=== PATIENT | male | born 1965 | race Caucasian/White ===

== ENCOUNTER 2020-03-17 18:51 | Inpatient (IN) ==
[2020-03-17] MEDS ORDERED: DILTIAZEM 25 MG/5 ML VIAL IV ONE (19:16)
--- NOTE | 2020-03-17 19:19 | Internal Med History&Physical ---
HPI History of Present Illness Patient information: Note initiated : 03/17/20 at 7:19 pm Service Date, if different from initiated Date: [] Patient: Bertrand Curtis a 54 y/o M admitted on for recheck. Chief Complaint: Abdominal pain/shortness of breath History of present illness: Mr. Curtis is a 54 year old M with a known history of heavy alcoholism with prior pancreatitis/smoking/COPD, obesity/HTN who presents to the ER with 3 days onset of worsening shortness of breath/upper abdominal pain along with nausea. Patient admits to consuming fifth of alcohol every 2-3 days. Symptoms has progressed over the last 3 days with increasing dyspnea progressing to rest along with worsening abdominal/epigastric pain radiating to back along with associated nausea and loss of appetite. Initial work-up was consistent with blood alcohol level 380. Patient was found to be in A. fib with RVR. Patient was started on diltiazem drip. Chest imaging was consistent with CHF. CT abdomen consistent with simple pancreatitis. However patient shortly thereafter left AMA only to be back within an hour. Hospital service was consulted for admission in light of A. fib RVR/acute pancreatitis. At the time of my evaluation patient is alert but anxious. He was able to answer most of the questions. He appears anxious and labored. Is currently on 5 L oxygen and demonstrate labored breathing unable to talk in full sentences. Denies any bloody stool/bloody emesis but endorses lightheadedness, dizziness, exertional dyspnea and orthopnea. Also endorses to drinking fifth alcohol this morning. He lives with his son in [place]. He denies recent exposure to Covid or experiencing upper respiratory symptoms. Denies fever, chills, rash or joint pain. Review of systems 10 point review system was performed and is negative except for ones discussed above PFSH PFSH All Active Problems (Updated 03/17/20 @ 19:26 by Frank Ford MD) Atrial flutter (Acute) Congestive heart failure (Acute) Obstructive sleep apnea (Acute) No pertinent past surgical history (Chronic) Hepatic fibrosis (Chronic 03/21/19) Chronic obstructive lung disease (Chronic) Essential hypertension (Chronic) Chronic depression (Chronic) Alcohol abuse (Chronic) Obesity (Chronic) Hypercalcemia (Chronic) Gout (Chronic) Vitamin D deficiency (Chronic) Chronic hepatitis C (Chronic) Medical History (Updated 03/17/20 @ 19:26 by Frank Ford MD) Alcohol abuse (Chronic) Chronic depression (Chronic) Chronic hepatitis C (Chronic) Chronic obstructive lung disease (Chronic) Essential hypertension (Chronic) Gout (Chronic) Hepatic fibrosis (Chronic 03/21/19) Requires liver US q 6 months for lifetime Hypercalcemia (Chronic) Obesity (Chronic) Obstructive sleep apnea (Acute) Vitamin D deficiency (Chronic) Surgical History No pertinent past surgical history (Chronic) Family History Father Alcoholism COPD (chronic obstructive pulmonary disease) Heart disease Mother Marfan's syndrome COPD (chronic obstructive pulmonary disease) Social History lives independently: Yes education level: high school occupational status: unemployed sexually active: Yes smoking status: Current every day smoker smoking status start date: 05/29/81 alcohol intake frequency: does not drink substance use type: does not use seatbelt use: always working smoke detector in home: Yes firearms in home: No MEDS/ALLERGIES Home Medications and Allergies Home Medications Medication Instructions Recorded Confirmed Type amlodipine 5 mg tablet 5 mg PO QDAY 01/06/20 03/17/20 History fluticasone propionate 110 2 puff INHALATION BID 01/06/20 02/10/20 History mcg/actuation HFA aerosol inhaler ibuprofen 800 mg tablet See Rx Instructions PO Q6H PRN 01/06/20 02/10/20 History ipratropium 0.5 mg-albuterol 3 mg 3 ml INHALATION QID PRN 01/06/20 03/17/20 History (2.5 mg base)/3 mL nebulization soln ipratropium bromide 17 1 puff INHALATION QID 01/06/20 02/10/20 History mcg/actuation HFA aerosol inhaler lisinopril 40 mg tablet 40 mg PO QDAY 01/06/20 02/10/20 History albuterol sulfate 90 mcg/actuation 2 puff INHALATION Q4H PRN #18 g 02/10/20 03/17/20 Rx aerosol inhaler budesonide-formoterol HFA 160 2 puff INHALATION BID #10.2 g 02/28/20 Rx mcg-4.5 mcg/actuation aerosol inhaler Allergies Allergy/AdvReac Type Severity Reaction Status Date / Time No Known Drug Allergies Allergy Unverified 03/17/20 11:18 EXAM Constitutional Vitals: Temp Pulse Resp BP Pulse Ox 97.7 F 135 H 19 132/92 82 L 03/17/20 18:52 03/17/20 18:52 03/17/20 18:52 03/17/20 18:52 03/17/20 18:52 Morbidly obese Labored and anxious Head normocephalic Oral cavity moist No ear nose discharge Eye movement symmetrical Neck supple no lymphadenopathy S1-S2 tachycardic irregular Diminished breath sounds/tachypnea on 5 L oxygen Pendulous, epigastric tenderness abdomen Lower extremity no cyanosis clubbing or joint swelling Skin no suspicious lesion Psych anxious but alert cooperative Neuro normal higher function A/P Narrative A/P Narrative: * A. fib with RVR-initiated control measures. Likely precipitated by alcoholism. Check echocardiogram * Acute decompensated heart failure secondary to A. fib related likely diastolic heart failure. Initiate gentle diuresis * Acute hypoxic respiratory failure on 5 liters oxygen. Start noninvasive ventilation. Secondary to decompensated heart failure * Acute pancreatitis secondary to alcoholism, bowel rest/antiemetics and analgesics * Alcoholism-high risk withdrawal symptoms. Continue multivitamin/benzodiazepine protocol * History of COPD continue bronchodilators * History of hypertension -restart antihypertensives once systolics over 140 * Prophylaxis heparin Plan * ICU admission * Noninvasive mechanical ventilation * Rate control measures * Echocardiogram * Bowel rest/antiemetics/analgesics * Pre-existing medical condition management home meds * High risk alcohol withdrawal, monitor for withdrawal symptoms and use CIWA protocol Time Spent With Patient Time: Total time spent is greater than 50% in coordination of care (as documented) at patient's floor/unit and/or counseling patient:
--- NOTE | 2020-03-17 19:26 | Emergency Department Note ---
HPI General Chief complaint: Recheck/Abnormal Lab/Rx Stated complaint: recheck Time Seen by Provider: 03/17/20 19:14 Source: patient Mode of arrival: ambulatory Limitations: no limitations History of Present Illness HPI Narrative: Narrative: This patient returns the emergency room after checking out AMA about an hour and a half ago. He was here with atrial flutter congestive heart failure and hypoxia. Patient son convinced him to come back. During triage his O2 saturation was 65% on room air. He was completely worked up when he was here earlier started on diltiazem and given Lasix. I have discussed this now with the hospitalist Dr. Dasilva and he will admit him to the ICU. The patient denies drinking any further alcohol in the last hour and a half. Related Data Home Medications Medication Instructions Recorded Confirmed amlodipine 5 mg tablet 5 mg PO QDAY 01/06/20 03/17/20 fluticasone propionate 110 2 puff INHALATION BID 01/06/20 02/10/20 mcg/actuation HFA aerosol inhaler ibuprofen 800 mg tablet See Rx Instructions PO Q6H PRN 01/06/20 02/10/20 ipratropium 0.5 mg-albuterol 3 mg 3 ml INHALATION QID PRN 01/06/20 03/17/20 (2.5 mg base)/3 mL nebulization soln ipratropium bromide 17 1 puff INHALATION QID 01/06/20 02/10/20 mcg/actuation HFA aerosol inhaler lisinopril 40 mg tablet 40 mg PO QDAY 01/06/20 02/10/20 Previous Rx's Medication Instructions Recorded albuterol sulfate 90 mcg/actuation 2 puff INHALATION Q4H PRN #18 g 02/10/20 aerosol inhaler budesonide-formoterol HFA 160 2 puff INHALATION BID #10.2 g 02/28/20 mcg-4.5 mcg/actuation aerosol inhaler Allergies Allergy/AdvReac Type Severity Reaction Status Date / Time No Known Drug Allergies Allergy Unverified 03/17/20 11:18 Review of Systems ROS ROS Narrative: Narrative: All systems ED: reviewed and negative except as stated. PFSH Narrative Patient History Narrative: Narrative: Medical/Surgical/Family History All Active Problems (Updated 03/17/20 @ 19:26 by Frank Ford MD) Atrial flutter (Acute) Congestive heart failure (Acute) Obstructive sleep apnea (Acute) No pertinent past surgical history (Chronic) Hepatic fibrosis (Chronic 03/21/19) Chronic obstructive lung disease (Chronic) Essential hypertension (Chronic) Chronic depression (Chronic) Alcohol abuse (Chronic) Obesity (Chronic) Hypercalcemia (Chronic) Gout (Chronic) Vitamin D deficiency (Chronic) Chronic hepatitis C (Chronic) Medical History (Updated 03/17/20 @ 19:26 by Frank Ford MD) Alcohol abuse (Chronic) Chronic depression (Chronic) Chronic hepatitis C (Chronic) Chronic obstructive lung disease (Chronic) Essential hypertension (Chronic) Gout (Chronic) Hepatic fibrosis (Chronic 03/21/19) Requires liver US q 6 months for lifetime Hypercalcemia (Chronic) Obesity (Chronic) Obstructive sleep apnea (Acute) Vitamin D deficiency (Chronic) Surgical History No pertinent past surgical history (Chronic) Family History Father Alcoholism COPD (chronic obstructive pulmonary disease) Heart disease Mother Marfan's syndrome COPD (chronic obstructive pulmonary disease) Social History Smoking Status: Current every day smoker Alcohol Intake Frequency: does not drink Substance Use: does not use Exam Narrative Narrative: Narrative: General Limitations: no limitations Head Head: Present atraumatic, normocephalic and normal inspection Eye Eye: Present normal appearance and EOMI; Absent scleral icterus and conjunctival injection ENT ENT: Present normal exam, normal oropharynx and mucous membranes moist Neck Neck: Present normal inspection and full ROM Chest Chest: Present normal inspection and symmetric chest wall rise Respiratory Respiratory: Present rales/crackles Cardiovascular Cardiovascular: Present regular rate and tachycardia Adbominal Abdominal: Present soft, distention and tenderness; Absent guarding, rebound and rigidity Extremities Extremities: Present normal inspection, full ROM, pedal edema and pretibial edema Neurological Neurological: Present alert Psychiatric Psychiatric: Present normal affect Skin Skin: Present warm (WNL) and dry; Absent diaphoresis Course Vital Signs Vital signs: Vital Signs Temperature 97.7 F 03/17/20 18:52 Pulse Rate 135 H 03/17/20 18:52 Respiratory Rate 19 03/17/20 18:52 Blood Pressure 132/92 03/17/20 18:52 Pulse Oximetry (%) 82 L 03/17/20 18:52 Temperature 97.7 F 03/17/20 18:52 Pulse Rate 135 H 03/17/20 18:52 Respiratory Rate 19 03/17/20 18:52 Blood Pressure 132/92 03/17/20 18:52 Pulse Oximetry (%) 82 L 03/17/20 18:52 MDM MDM Narrative Medical decision making narrative: Narrative: Discharge Plan Patient/Caregiver Discharge Instructions Pt seen by STYR[facility] DEHYDRATION REACTOR OPERATOR/PA only: No Clinical Impression: Atrial flutter, Congestive heart failure Patient Disposition: Xfer As Inpt ([facility]) Follow up with: Diann Morrison ARNP [Primary Care Provider] - Prescriptions: No Action budesonide-formoterol [Symbicort] 160-4.5 mcg/actuation HFA aerosol inhaler 2 puff INHALATION BID Qty: 10.2 RF: 6 amlodipine 5 mg tablet 5 mg PO QDAY RF: 0 Atrovent HFA 17 mcg/actuation HFA aerosol inhaler 1 puff INHALATION QID RF: 0 Flovent HFA 110 mcg/actuation HFA aerosol inhaler 2 puff INHALATION BID RF: 0 ibuprofen [IBU] 800 mg tablet See Rx Instructions PO Q6H PRNRF: 0 ipratropium-albuterol 0.5 mg-3 mg(2.5 mg base)/3 mL solution for nebulization 3 ml INHALATION QID PRN (Reason: Shortness Of Breath) RF: 0 lisinopril 40 mg tablet 40 mg PO QDAY RF: 0 albuterol sulfate 90 mcg/actuation HFA aerosol inhaler 2 puff INHALATION Q4H PRN (Reason: shortness of breath or wheezing) Qty: 18 RF: 0 budesonide-formoterol [Symbicort] 160-4.5 mcg/actuation HFA aerosol inhaler RF: 0
[2020-03-17] MEDS ORDERED: DILTIAZEM 125 MG in DEXTROSE 5% IN WATER 100 ML IV SCH (19:30)
[2020-03-17] MEDS ORDERED: ACETAMINOPHEN 325 MG TABLET PO ONE (20:32)
[2020-03-17] MEDS ORDERED: ACETAMINOPHEN 650 MG/65 ML BOTTLE IV PRN (21:02)
[2020-03-17] MEDS ORDERED: MELATONIN 3 MG TABLET PO PRN (21:02)
[2020-03-17] MEDS ORDERED: ONDANSETRON 4 MG/2 ML VIAL IV PRN (21:02)
[2020-03-17] MEDS ORDERED: POLYETHYLENE GLYCOL 3350 17 GM PACKET PO PRN (21:02)
[2020-03-17] MEDS ORDERED: hydrALAZINE 20 MG/ML VIAL IV PRN (21:02)
[2020-03-17] MEDS ORDERED: POTASSIUM CHLORIDE 20 MEQ PACKET PO PRN (21:02)
[2020-03-17] MEDS ORDERED: BISACODYL 10 MG SUPP.RECT PR PRN (21:02)
[2020-03-17] MEDS ORDERED: POTASSIUM CHLORIDE 40 MEQ in DEXTROSE 5% IN WATER 500 ML IV PRN (21:02)
[2020-03-17] MEDS ORDERED: 0.9 % SODIUM CHLORIDE 1,000 ML IV ONE (21:02)
[2020-03-17] MEDS ORDERED: METOPROLOL TARTRATE 5 MG/5 ML VIAL IV PRN (21:02)
[2020-03-17] MEDS: 0.9 % SODIUM CHLORIDE 250 ML IV SCH (21:15)
[2020-03-17] MEDS ORDERED: LORazepam 2 MG/ML VIAL ONE (21:48)
[2020-03-17] MEDS: SENNOSIDES/DOCUSATE SODIUM 1 TAB TABLET PO SCH (21:57)
[2020-03-17] MEDS: 0.9 % SODIUM CHLORIDE 10 ML SYRINGE IV SCH (21:58)
[2020-03-17] MEDS: DOCUSATE SODIUM 100 MG CAPSULE PO SCH (21:58)
[2020-03-17] MEDS: IPRATROPIUM/ALBUTEROL 3 ML AMPUL.NEB NEB PRN (22:04)
[2020-03-17] MEDS: BUDESONIDE 0.5 MG/2 ML AMPUL.NEB NEB SCH (22:04)
[2020-03-17] MEDS ORDERED: BUDESONIDE 0.5 MG/2 ML AMPUL.NEB ONE (22:07)
[2020-03-17] MEDS: HEPARIN 5,000 UNIT/ML VIAL SQ SCH (22:09)
[2020-03-17] MEDS: 0.9 % SODIUM CHLORIDE 1,000 ML IV SCH (22:35)
[2020-03-18] MEDS: LORazepam 2 MG/ML VIAL IV PRN ×6 (02:33→22:48)
[2020-03-18] MEDS ORDERED: LORazepam 2 MG/ML VIAL ONE (02:39)
[2020-03-18] MEDS: HYDROmorphone 0.5 MG/0.5 ML SYRINGE IV PRN ×3 (03:43→20:08)
[2020-03-18] MEDS: 0.9 % SODIUM CHLORIDE 10 ML SYRINGE IV SCH ×3 (05:14→20:08)
[2020-03-18 06:52] LABS: ALT/SGPT 30 U/L (<40); AST/SGOT 33 U/L (<40); Albumin 3.9 gm/dL (3.2-5.2); Albumin/Globulin Ratio 1.3 (1.0-2.3); Alkaline Phosphatase 109 U/L (39-117); Bilirubin,Direct < 0.2 mg/dL (<0.3); Bilirubin,Total 0.6 mg/dL (0.1-1.0); Blood Urea Nitrogen 9 mg/dL (6-20); Calcium 10.3 mg/dL (8.6-10.4); Carbon Dioxide 28 mmol/L (22-30); Chloride 104 mmol/L (96-108); Globulin 2.9 gm/dL (2.2-3.7); Glomerular Filtration Rate 76; Glucose 93 mg/dL (70-105); Lactate Dehydrogenase 230 U/L (135-225); Phosphorous 3.3 mg/dL (2.5-4.5); Thyroid Stimulating Hormone 1.57 uIU/mL (0.27-5.01); Triglycerides 114 mg/dL (<150); Uric Acid 12.2 mg/dL (2.5-8.0)
[2020-03-18] MEDS: DOCUSATE SODIUM 100 MG CAPSULE PO SCH ×2 (07:03→20:08)
[2020-03-18] MEDS: MAGNESIUM SULFATE 2 GM/50 ML BAG IV PRN (07:15)
[2020-03-18] MEDS: HEPARIN 5,000 UNIT/ML VIAL SQ SCH ×2 (07:15→20:09)
[2020-03-18] MEDS: ONDANSETRON 4 MG ODT TABLET SL PRN (07:15)
[2020-03-18] MEDS: MULTIVIT,THER IRON,CA,FA & MIN 1 TABLET PO SCH (07:15)
[2020-03-18] MEDS: METOLAZONE 2.5 MG TABLET PO SCH ×2 (07:15→16:51)
[2020-03-18] MEDS: ACETAMINOPHEN 325 MG TABLET PO PRN (07:16)
[2020-03-18] MEDS: DILTIAZEM 125 MG in 0.9 % SODIUM CHLORIDE 100 ML IV SCH ×4 (07:29→23:23)
[2020-03-18] MEDS: BUDESONIDE 0.5 MG/2 ML AMPUL.NEB NEB SCH ×2 (08:26→21:44)
[2020-03-18 08:35] LABS: Anisocytosis 1+ (None Seen); Eosinophils % (Manual) 1 % (0-7); Hematocrit 44.6 % (41.0-55.0); Hemoglobin 14.2 g/dL (13.5-16.5); Lymphocytes % 19 % (15-49); Macrocytosis 2+ (None Seen); Mean Cell Volume 103.5 fL (80.0-100.0); Mean Corpuscular HGB Conc 31.8 g/dL (31.0-36.0); Mean Platelet Volume 10.5 fL (7.4-10.4); Monocytes % (Manual) 11 % (1-12); Platelet Count 141 K/mcL (140-440); Platelet Estimate NORMAL (Normal); RBC 4.31 M/mcL (4.50-5.90); RBC Morphology ABNORMAL (Normal); Red Cell Distribution Width 14.4 % (11.5-14.5); Segmented Neutrophils % 69 % (38-78); WBC 6.1 K/mcL (4.5-11.0)
--- NOTE | 2020-03-18 09:16 | Internal Med Progress Note ---
SUBJECTIVE Subjective Patient information: Note initiated : 03/18/20 at 9:11 am Service Date, if different from initiated Date: [] Patient: Bertrand Curtis a 54 y/o M admitted on 03/17/20 for recheck. Chief Complaint: Mr. Curtis is a 54 year old M with a known history of heavy alcoholism with prior pancreatitis/smoking/COPD, obesity/HTN who presents to the ER with 3 days onset of worsening shortness of breath/upper abdominal pain along with nausea. Patient admits to consuming fifth of alcohol every 2-3 days. Symptoms has progressed over the last 3 days with increasing dyspnea progressing to rest along with worsening abdominal/epigastric pain radiating to back along with associated nausea and loss of appetite. Initial work-up was consistent with blood alcohol level 380. Patient was found to be in A. fib with RVR. Patient was started on diltiazem drip. Chest imaging was consistent with CHF. CT abdomen consistent with simple pancreatitis. However patient shortly thereafter left AMA only to be back within an hour. Hospital service was consulted for admission in light of A. fib RVR/acute pancreatitis. At the time of my evaluation patient is alert but anxious. He was able to ans wer most of the questions. He appears anxious and labored. Is currently on 5 L oxygen and demonstrate labored breathing unable to talk in full sentences. Denies any bloody stool/bloody emesis but endorses lightheadedness, dizziness, exertional dyspnea and orthopnea. Also endorses to drinking fifth alcohol this morning. He lives with his son in [place]. He denies recent exposure to Covid or experiencing upper respiratory symptoms. Denies fever, chills, rash or joint pain. 03/18-patient overnight on noninvasive ventilation due to hypercapnic respiratory failure. Rate controlled on diltiazem drip. Currently n.p.o. in light of pancreatitis. Calcium downtrending. White count 6.1, check CRP lipase Constitutional Vitals: Vital Signs Temp Pulse Resp BP Pulse Ox 99.4 F H 102 H 14 130/93 90 03/18/20 08:01 03/18/20 08:28 03/18/20 08:28 03/18/20 08:01 03/18/20 08:28 Period Temp Pulse Resp BP Sys/Polo Pulse Ox Last 24 Hr 97.7 F-99.4 F 49-135 13-24 108-139/75-107 82-97 Intake and Output 03/17/20 03/18/20 03/18/20 21:59 05:59 13:59 Intake Total 11 1060 54 Output Total 0 600 Balance 11 1060 -546 Weight 122.3 kg on noninvasive ventilation CIWA score elevated On diltiazem drip A flutter Tender abdomen Intake & Output: Intake & Output 03/17/20 03/18/20 03/18/20 21:59 05:59 13:59 Intake Total 11 1060 54 Output Total 0 600 Balance 11 1060 -546 Weight 122.3 kg Intake: IV 11 1060 54 Sodium Chloride 0.9% 1,000 ml @ 1000 Wide Open IV BOLUS ONE Rx#: [id number] Cardizem 125 mg In Dextrose 5% 11 60 54 in Water 100 ml @ 5 MG/HR 5 mls /hr IV Q12H DENISHA Rx#:[id number] Oral 0 Output: Void Amount 0 600 Other: Urine Appearance Clear Urine Color Dark Yellow Urine Odor Strong OBJ DATA Labs CBC & Chem 7: 03/18/20 05:04 03/18/20 05:04 Labs: Abnormal Lab Results 03/18/20 03/18/20 05:04 05:04 RBC 4.31 L MCV 103.5 H MPV 10.5 H RBC Morphology Abnormal A Anisocytosis 1+ A Macrocytosis 2+ A Uric Acid 12.2 H Lactate Dehydrogenase 230 H Meds: Medications Acetaminophen (Tylenol) 650 mg PO Q4-6HP PRN; Protocol PRN Reason: Per Pain Protocol/Fever > 101 Last Admin: 03/18/20 07:16 Dose: 650 mg Documented by: Albuterol/Ipratropium (Duoneb) 3 ml NEB Q4HP PRN PRN Reason: Shortness Of Breath Last Admin: 03/17/20 22:04 Dose: 3 ml Documented by: Bisacodyl (Dulcolax) 10 mg ND Q2-3DAYS PRN PRN Reason: Constipation Budesonide (Pulmicort) 0.5 mg NEB Q12 DENISHA Last Admin: 03/18/20 08:26 Dose: 0.5 mg Documented by: Docusate Sodium (Colace) 100 mg PO BID [facility] Last Admin: 03/18/20 07:03 Dose: Not Given Documented by: Heparin Sodium (Porcine) (Heparin) 5,000 unit SQ Q12 DENISHA Last Admin: 03/18/20 07:15 Dose: 5,000 unit Documented by: Hydralazine HCl (Apresoline) 10 mg IV Q4-6HP PRN PRN Reason: Hypertension Hydromorphone HCl (Dilaudid) 0.25 mg IV Q2HP PRN; Protocol PRN Reason: Per Pain Protocol Last Admin: 03/18/20 03:43 Dose: 0.25 mg Documented by: Potassium Chloride 40 meq/ (Dextrose) 520 mls @ 130 mls/hr IV UD PRN PRN Reason: K+ = or < 3.5 Acetaminophen (Ofirmev) 650 mg in 65 mls @ 130 mls/hr IV Q6HP PRN; Protocol PRN Reason: Per Pain Protocol/Fever > 101 Magnesium Sulfate (Magnesium Sulfate) 2 gm in 50 mls @ 50 mls/hr IV UD PRN PRN Reason: MG = or < 1.7 Last Admin: 03/18/20 07:15 Dose: 50 mls/hr Documented by: Diltiazem HCl 125 mg/ Sodium (Chloride) 125 mls @ 5 mls/hr IV Q12H DENISHA; Protocol Last Admin: 03/18/20 07:37 Dose: Not Given Documented by: Sodium Chloride (Sodium Chloride 0.9%) 1,000 mls @ 100 mls/hr IV .Q10H DENISHA Last Admin: 03/17/20 22:35 Dose: 100 mls/hr Documented by: Thiamine HCl 100 mg/ Sodium (Chloride) 51 mls @ 50 mls/hr IV DAILY DENISHA Stop: 03/20/20 10:02 Sodium Chloride (Sodium Chloride 0.9%) 250 mls @ 20 mls/hr IV .[id number] DENISHA Last Admin: 03/17/20 21:15 Dose: 20 mls/hr Documented by: Iron Carb/Multivit/Sultan/Folic Acid (Multivitamin W/Minerals) 1 tab PO DAILY DENISHA Last Admin: 03/18/20 07:15 Dose: 1 tab Documented by: Lorazepam (Ativan) 0 mg IV PRN PRN; Protocol PRN Reason: Alcohol Withdrawal Last Admin: 03/18/20 07:12 Dose: 4 mg Documented by: Melatonin (Melatonin 3mg Tablet) 3 mg PO HSP PRN PRN Reason: Insomnia Metolazone (Zaroxolyn) 2.5 mg PO BID@0730,1530 [facility] Last Admin: 03/18/20 07:15 Dose: 2.5 mg Documented by: Metoprolol Tartrate (Lopressor) 5 mg IV Q5M PRN PRN Reason: Heart Rate > 140 bpm Ondansetron HCl (Zofran Odt) 4 mg SL Q4-6HP PRN; Protocol PRN Reason: Nausea And Vomiting Last Admin: 03/18/20 07:15 Dose: 4 mg Documented by: Ondansetron HCl (Zofran) 4 mg IV Q4-6HP PRN; Protocol PRN Reason: Nausea And Vomiting Polyethylene Glycol (Miralax) 17 gm PO DAILYP PRN PRN Reason: Constipation Potassium Chloride (Klor-Con) 40 meq PO DAILYP PRN PRN Reason: K+ < 3.5 Senna/Docusate Sodium (Senna Plus Tablet) 1 tab PO HS [facility] Last Admin: 03/17/20 21:57 Dose: Not Given Documented by: Sodium Chloride (Saline Flush) 10 ml IV Q8 [facility] Last Admin: 03/18/20 05:14 Dose: Not Given Documented by: A/P Narrative A/P Narrative: * Acute hypoxic hypercapnic respiratory failure-7.29/70 ABG. On noninvasive mechanical ventilation./60% FiO2. Braxton 2 score 18. High risk mortality. * Hypercalcemia-secondary to volume depletion. Continue crystalloids. Calcium down from 11.5-10.3 * Alcoholic pancreatitis-continue crystalloid/bowel rest/analgesics * A. Flutter with RVR-rate controlled on diltiazem drip. Await echocardiogram. chads score mandates anticoagulation. * Acute decompensated heart failure secondary to A. fib related likely diastolic heart failure. * Acute alcohol withdrawal. Continue benzodiazepine protocol. MVI/crystalloids and DT monitoring * History of COPD continue bronchodilators * History of hypertension * Prophylaxis heparin Plan * Continue ICU care * Serial chest imaging/blood gas * Noninvasive mechanical ventilation * Rate control measures * Echocardiogram * Bowel rest/antiemetics/analgesics * Pre-existing medical condition management home meds Time Spent With Patient Time: Total time spent is greater than 50% in coordination of care (as documented) at patient's floor/unit and/or counseling patient: QUALITY Stroke Symptom Onset Unknown: No VTE Deep Vein Thrombosis/Pulmonary Embolism Present on Admission: No
[2020-03-18] MEDS: THIAMINE 100 MG in 0.9 % SODIUM CHLORIDE 50 ML IV SCH (10:32)
[2020-03-18] MEDS: 0.9 % SODIUM CHLORIDE 1,000 ML IV SCH ×3 (10:33→20:22)
[2020-03-18] MEDS: 0.9 % SODIUM CHLORIDE 250 ML IV SCH ×2 (10:34→22:52)
[2020-03-18] MEDS: NICOTINE 21 MG PATCH TOPICAL SCH (10:58)
--- NOTE | 2020-03-18 11:03 | XRay Report ---
INDICATION: Dyspnea TECHNIQUE: AP portable upright chest x-ray COMPARISON: Previous chest x-rays dated 03/17/2020 and 03/09/2018 FINDINGS: Lungs:No parenchymal consolidation. No new focal pulmonary parenchymal infiltrate Heart, vascular:There is mild cardiomegaly, unchanged. Pulmonary vascularity remains prominent consistent with pulmonary congestion. There is mild bronchial wall thickening and probable interstitial edema. Appearance is unchanged Mediastinum, beverly:No mediastinal widening. No hilar mass Pleura:No pleural fluid. No pleural-based mass or calcification Skeletal:Negative. IMPRESSION: 1. Mild cardiomegaly and probable interstitial edema 2. No interval change since 03/17/2020 Interpreted and Authenticated by: Yovany Izquierdo 03/18/20
[2020-03-18] MEDS: SENNOSIDES/DOCUSATE SODIUM 1 TAB TABLET PO SCH (20:08)
[2020-03-19] MEDS: HYDROmorphone 0.5 MG/0.5 ML SYRINGE IV PRN ×4 (00:40→20:20)
[2020-03-19] MEDS: LORazepam 2 MG/ML VIAL IV PRN ×3 (01:42→10:15)
[2020-03-19] MEDS: 0.9 % SODIUM CHLORIDE 10 ML SYRINGE IV SCH ×3 (05:37→21:38)
[2020-03-19] MEDS: 0.9 % SODIUM CHLORIDE 1,000 ML IV SCH ×3 (05:40→19:39)
[2020-03-19 07:12] LABS: ALT/SGPT 23 U/L (<40); AST/SGOT 25 U/L (<40); Albumin 3.6 gm/dL (3.2-5.2); Albumin/Globulin Ratio 1.3 (1.0-2.3); Alkaline Phosphatase 104 U/L (39-117); Bilirubin,Direct 0.2 mg/dL (<0.3); Bilirubin,Total 0.9 mg/dL (0.1-1.0); Blood Urea Nitrogen 7 mg/dL (6-20); Calcium 10.5 mg/dL (8.6-10.4); Carbon Dioxide 24 mmol/L (22-30); Chloride 101 mmol/L (96-108); Globulin 2.7 gm/dL (2.2-3.7); Glomerular Filtration Rate 97; Glucose 94 mg/dL (70-105); Lactate Dehydrogenase 219 U/L (135-225); Phosphorous 1.7 mg/dL (2.5-4.5); Triglycerides 114 mg/dL (<150)
[2020-03-19] MEDS: METOLAZONE 2.5 MG TABLET PO SCH (08:03)
[2020-03-19] MEDS: HEPARIN 5,000 UNIT/ML VIAL SQ SCH (08:23)
[2020-03-19] MEDS: THIAMINE 100 MG in 0.9 % SODIUM CHLORIDE 50 ML IV SCH (08:23)
[2020-03-19] MEDS: MULTIVIT,THER IRON,CA,FA & MIN 1 TABLET PO SCH (08:23)
[2020-03-19] MEDS: NICOTINE 21 MG PATCH TOPICAL SCH (08:24)
[2020-03-19] MEDS: DOCUSATE SODIUM 100 MG CAPSULE PO SCH ×2 (08:24→20:13)
[2020-03-19 08:44] LABS: Eosinophils % (Manual) 4 % (0-7); Hematocrit 44.8 % (41.0-55.0); Hemoglobin 14.2 g/dL (13.5-16.5); Hypochromasia 1+ (None Seen); Lymphocytes % 20 % (15-49); Macrocytosis 2+ (None Seen); Mean Cell Volume 103.9 fL (80.0-100.0); Mean Corpuscular HGB Conc 31.7 g/dL (31.0-36.0); Mean Platelet Volume 10.7 fL (7.4-10.4); Monocytes % (Manual) 12 % (1-12); Platelet Count 129 K/mcL (140-440); Platelet Estimate NORMAL (Normal); RBC 4.31 M/mcL (4.50-5.90); RBC Morphology ABNORMAL (Normal); Red Cell Distribution Width 13.6 % (11.5-14.5); Segmented Neutrophils % 64 % (38-78)
[2020-03-19] MEDS: BUDESONIDE 0.5 MG/2 ML AMPUL.NEB NEB SCH ×2 (08:48→19:36)
[2020-03-19] MEDS: DILTIAZEM 125 MG in 0.9 % SODIUM CHLORIDE 100 ML IV SCH ×2 (08:55→19:52)
[2020-03-19] MEDS: 0.9 % SODIUM CHLORIDE 250 ML IV SCH (09:15)
[2020-03-19] MEDS ORDERED: cloNIDine TTS 2 1 PATCH PATCH TD ONE (10:00)
[2020-03-19] MEDS ORDERED: PAMIDRONATE 60 MG in 0.9 % SODIUM CHLORIDE 500 ML IV ONE (10:00)
[2020-03-19] MEDS ORDERED: PNEUMOCOCCAL 23-VAL P-SAC VAC 0.5 ML SYRINGE IM ONE (10:00)
[2020-03-19] MEDS ORDERED: FLU VACC QS2020-21(6MOS UP)/PF 60 MCG/0.5 ML SYRINGE IM ONE (10:15)
--- NOTE | 2020-03-19 10:32 | Internal Med Progress Note ---
SUBJECTIVE Subjective Patient information: Note initiated : 03/19/20 at 10:27 am Service Date, if different from initiated Date: [] Patient: Bertrand Curtis a 54 y/o M admitted on 03/17/20 for recheck. Chief Complaint: [] Mr. Curtis is a 54 year old M with a known history of heavy alcoholism with prior pancreatitis/smoking/COPD, obesity/HTN who presents to the ER with 3 days onset of worsening shortness of breath/upper abdominal pain along with nausea. Patient admits to consuming fifth of alcohol every 2-3 days. Symptoms has progressed over the last 3 days with increasing dyspnea progressing to rest along with worsening abdominal/epigastric pain radiating to back along with associated nausea and loss of appetite. Initial work-up was consistent with blood alcohol level 380. Patient was found to be in A. fib with RVR. Patient was started on diltiazem drip. Chest imaging was consistent with CHF. CT abdomen consistent with simple pancreatitis. However patient shortly thereafter left AMA only to be back within an hour. Hospital service was consulted for admission in light of A. fib RVR/acute pancreatitis. At the time of my evaluation patient is alert but anxious. He was able to a nswer most of the questions. He appears anxious and labored. Is currently on 5 L oxygen and demonstrate labored breathing unable to talk in full sentences. Denies any bloody stool/bloody emesis but endorses lightheadedness, dizziness, exertional dyspnea and orthopnea. Also endorses to drinking fifth alcohol this morning. He lives with his son in [place]. He denies recent exposure to Covid or experiencing upper respiratory symptoms. Denies fever, chills, rash or joint pain. 03/18-patient overnight on noninvasive ventilation due to hypercapnic respiratory failure. Rate controlled on diltiazem drip. Currently n.p.o. in light of pancreatitis. Calcium downtrending. White count 6.1, check CRP lipase 03/19-patient off BiPAP trial this morning. On 6 L oxygen. On CIWA protocol with active alcohol withdrawals. Active hallucinations noted. pH 7.3 on 45% FiO2. On Cardizem drip for rate control a flutter. Hypercalcemia worsening at 10.5. Started on pamidronate. Continue crystalloids followed by diuretics. Patient remains critically ill based on [place] 2 score 17, platelet count down to 129 from 2 6. Switched to fondaparinux Start phosphorus replacement, continue bowel rest with clears only for acute pancreatitis. Constitutional Vitals: Vital Signs Temp Pulse Resp BP Pulse Ox 97.5 F 133 H 17 120/90 95 03/19/20 08:00 03/19/20 09:10 03/19/20 10:01 03/19/20 10:01 03/19/20 10:01 Period Temp Pulse Resp BP Sys/Polo Pulse Ox Last 24 Hr 97.2 F-98.8 F 76-133 13-22 96-167/67-121 89-100 Intake and Output 03/18/20 03/19/20 03/19/20 21:59 05:59 13:59 Intake Total 1039 1870 200 Output Total 525 450 550 Balance 514 1420 -350 Weight 124.1 kg anxious Tachycardia a flutter on telemetry Actively hallucinating Labored breathing Distended abdomen Intake & Output: Intake & Output 03/18/20 03/19/20 03/19/20 21:59 05:59 13:59 Intake Total 1039 1870 200 Output Total 525 450 550 Balance 514 1420 -350 Weight 124.1 kg Intake: IV 1039 1390 0 Sodium Chloride 0.9% 1,000 ml @ 982 930 100 mls/hr IV .Q10H [facility] Rx#: [id number] Sodium Chloride 0.9% 250 ml @ 380 0 20 mls/hr IV .[id number] [facility] Rx#: [id number] Cardizem 125 mg In Sodium 57 80 0 Chloride 0.9% 100 ml @ 5 MG/HR 5 mls/hr IV Q12H [facility] Rx#: [id number] Oral 480 200 Output: Void Amount 525 450 550 Other: Meal Breakfast Percent of Meal Consumed 50% Feeding Ability Assist with Tray Set Up Urine Appearance Clear Clear Clear Urine Color Dark Yellow Dark Yellow Bright Yellow Urine Odor Strong Strong Strong OBJ DATA Labs CBC & Chem 7: 03/20/20 05:23 03/20/20 05:23 Labs: Abnormal Lab Results 03/19/20 03/19/20 03/18/20 05:28 05:28 05:04 RBC 4.31 L MCV 103.9 H Plt Count 129 L MPV 10.7 H RBC Morphology Abnormal A Hypochromasia 1+ A Anisocytosis Macrocytosis 2+ A Uric Acid 11.0 H 12.2 H Calcium 10.5 H Phosphorus 1.7 L Lactate Dehydrogenase 230 H 03/18/20 05:04 RBC 4.31 L MCV 103.5 H Plt Count MPV 10.5 H RBC Morphology Abnormal A Hypochromasia Anisocytosis 1+ A Macrocytosis 2+ A Uric Acid Calcium Phosphorus Lactate Dehydrogenase Meds: Medications Acetaminophen (Tylenol) 650 mg PO Q4-6HP PRN; Protocol PRN Reason: Per Pain Protocol/Fever > 101 Last Admin: 03/18/20 07:16 Dose: 650 mg Documented by: Albuterol/Ipratropium (Duoneb) 3 ml NEB Q4HP PRN PRN Reason: Shortness Of Breath Last Admin: 03/17/20 22:04 Dose: 3 ml Documented by: Bisacodyl (Dulcolax) 10 mg MD Q2-3DAYS PRN PRN Reason: Constipation Budesonide (Pulmicort) 0.5 mg NEB Q12 [facility] Last Admin: 03/19/20 08:48 Dose: 0.5 mg Documented by: Clonidine HCl (Catapres) 0.1 mg PO Q8H [facility] Stop: 03/20/20 06:01 Diltiazem HCl (Cardizem) 30 mg PO Q6 [facility] Docusate Sodium (Colace) 100 mg PO BID [facility] Last Admin: 03/19/20 08:24 Dose: 100 mg Documented by: Gabapentin (Neurontin) 1,200 mg PO ONCE ONE Stop: 03/19/20 09:51 Gabapentin (Neurontin) 800 mg PO Q8 [facility] Heparin Sodium (Porcine) (Heparin) 5,000 unit SQ Q12 [facility] Last Admin: 03/19/20 08:23 Dose: 5,000 unit Documented by: Hydralazine HCl (Apresoline) 10 mg IV Q4-6HP PRN PRN Reason: Hypertension Hydromorphone HCl (Dilaudid) 0.25 mg IV Q2HP PRN; Protocol PRN Reason: Per Pain Protocol Last Admin: 03/19/20 10:15 Dose: 0.25 mg Documented by: Potassium Chloride 40 meq/ (Dextrose) 520 mls @ 130 mls/hr IV UD PRN PRN Reason: K+ = or < 3.5 Acetaminophen (Ofirmev) 650 mg in 65 mls @ 130 mls/hr IV Q6HP PRN; Protocol PRN Reason: Per Pain Protocol/Fever > 101 Magnesium Sulfate (Magnesium Sulfate) 2 gm in 50 mls @ 50 mls/hr IV UD PRN PRN Reason: MG = or < 1.7 Last Infusion: 03/18/20 08:15 Dose: Infused Documented by: Diltiazem HCl 125 mg/ Sodium (Chloride) 125 mls @ 5 mls/hr IV Q12H [facility]; Protocol Last Admin: 03/19/20 08:55 Dose: 10 mg/hr, 10 mls/hr Documented by: Sodium Chloride (Sodium Chloride 0.9%) 1,000 mls @ 100 mls/hr IV .Q10H [facility] Last Admin: 03/19/20 05:40 Dose: 100 mls/hr Documented by: Thiamine HCl 100 mg/ Sodium (Chloride) 51 mls @ 50 mls/hr IV DAILY [facility] Stop: 03/20/20 10:02 Last Admin: 03/19/20 08:23 Dose: 50 mls/hr Documented by: Sodium Chloride (Sodium Chloride 0.9%) 250 mls @ 20 mls/hr IV .[id number] [facility] Last Admin: 03/19/20 09:15 Dose: 20 mls/hr Documented by: Pamidronate Disodium 60 mg/ (Sodium Chloride) 520 mls @ 166 mls/hr IV ONCE ONE Stop: 03/19/20 13:07 Last Admin: 03/19/20 10:06 Dose: 166 mls/hr Documented by: Iron Carb/Multivit/[place]/Folic Acid (Multivitamin W/Minerals) 1 tab PO DAILY [facility] Last Admin: 03/19/20 08:23 Dose: 1 tab Documented by: Lorazepam (Ativan) 0 mg IV PRN PRN; Protocol PRN Reason: Alcohol Withdrawal Last Admin: 03/19/20 10:15 Dose: 3 mg Documented by: Melatonin (Melatonin 3mg Tablet) 3 mg PO HSP PRN PRN Reason: Insomnia Metolazone (Zaroxolyn) 2.5 mg PO BID@0730,1530 [facility] Last Admin: 03/19/20 08:03 Dose: 2.5 mg Documented by: Metoprolol Tartrate (Lopressor) 5 mg IV Q5M PRN PRN Reason: Heart Rate > 140 bpm Nicotine (Nicoderm) 21 mg TOPICAL DAILY@1000 [facility] Last Admin: 03/19/20 08:24 Dose: 21 mg Documented by: Ondansetron HCl (Zofran Odt) 4 mg SL Q4-6HP PRN; Protocol PRN Reason: Nausea And Vomiting Last Admin: 03/18/20 07:15 Dose: 4 mg Documented by: Ondansetron HCl (Zofran) 4 mg IV Q4-6HP PRN; Protocol PRN Reason: Nausea And Vomiting Last Admin: 03/18/20 23:03 Dose: 4 mg Documented by: Polyethylene Glycol (Miralax) 17 gm PO DAILYP PRN PRN Reason: Constipation Potassium Chloride (Klor-Con) 40 meq PO DAILYP PRN PRN Reason: K+ < 3.5 Senna/Docusate Sodium (Senna Plus Tablet) 1 tab PO HS [facility] Last Admin: 03/18/20 20:08 Dose: 1 tab Documented by: Sodium Chloride (Saline Flush) 10 ml IV Q8 [facility] Last Admin: 03/19/20 05:37 Dose: 10 ml Documented by: A/P Narrative A/P Narrative: * Alcohol withdrawal with DTs-start benzo sparing protocol on clonidine/gabapentin protocol. * Acute hypoxic hypercapnic respiratory failure-ABG 7.39/51/79 at 45% FiO2, continue noninvasive mechanical ventilation. Patient remains critically ill * Hypercalcemia-secondary to volume depletion. Continue crystalloids. Calcium down from 11.5->10.5. Start IV pamidronate/crystalloids followed by diuretics * Alcoholic pancreatitis-continue crystalloid/bowel rest/analgesics * Low phosphorus start replacement * Thrombocytopenia down from 200-129. Switch to fondaparinux * A. Flutter with RVR-rate controlled on diltiazem drip. Await echocardiogram. chads score mandates anticoagulation. Decision will be based on echo finding * Acute decompensated heart failure secondary to A. fib related likely diastolic heart failure. * Acute alcohol withdrawal. Continue benzodiazepine protocol. MVI/crystalloids and DT monitoring * History of COPD continue bronchodilators * History of hypertension * Prophylaxis heparin Plan * Remains critically ill * Serial chest imaging/blood gas * Continue noninvasive mechanical ventilation * DC benzodiazepine, start clonidine/gabapentin protocol * Rate control measures * Fondaparinux * Phosphorus replacement * Await echocardiogram * Bowel rest/antiemetics/analgesics * Pre-existing medical condition management home meds Patient critically ill. [place] 2 score 18. Critical care time spent in excess of 35 minutes Time Spent With Patient Time: Total time spent is greater than 50% in coordination of care (as documented) at patient's floor/unit and/or counseling patient: QUALITY Stroke Symptom Onset Unknown: No VTE Deep Vein Thrombosis/Pulmonary Embolism Present on Admission: No
[2020-03-19] MEDS: FUROSEMIDE 20 MG/2 ML VIAL IV SCH (11:14)
[2020-03-19] MEDS: DILTIAZEM 30 MG TABLET PO SCH ×2 (11:23→17:42)
[2020-03-19] MEDS ORDERED: GABAPENTIN 300 MG CAPSULE PO ONE (12:00)
[2020-03-19] MEDS: cloNIDine HCL 0.1 MG TABLET PO SCH ×2 (14:16→22:24)
[2020-03-19] MEDS ORDERED: METOPROLOL TARTRATE 5 MG/5 ML VIAL IV PRN (18:21)
[2020-03-19] MEDS: ONDANSETRON 4 MG ODT TABLET SL PRN (19:32)
[2020-03-19] MEDS: IPRATROPIUM/ALBUTEROL 3 ML AMPUL.NEB NEB PRN (19:36)
[2020-03-19] MEDS: SENNOSIDES/DOCUSATE SODIUM 1 TAB TABLET PO SCH (20:13)
[2020-03-19] MEDS: GABAPENTIN 400 MG CAPSULE PO SCH (20:13)
[2020-03-19] MEDS: NEUTRA PHOS 1 PACKET PO SCH (20:13)
[2020-03-20] MEDS: 0.9 % SODIUM CHLORIDE 250 ML IV SCH ×2 (02:11→12:10)
[2020-03-20] MEDS: DILTIAZEM 30 MG TABLET PO SCH ×4 (02:11→12:15)
[2020-03-20] MEDS: GABAPENTIN 400 MG CAPSULE PO SCH ×3 (03:41→20:25)
[2020-03-20] MEDS: cloNIDine HCL 0.1 MG TABLET PO SCH (05:35)
[2020-03-20] MEDS: 0.9 % SODIUM CHLORIDE 10 ML SYRINGE IV SCH ×3 (05:46→20:26)
[2020-03-20] MEDS ORDERED: DILTIAZEM 125 MG in 0.9 % SODIUM CHLORIDE 100 ML IV PRN (07:45)
[2020-03-20 08:01] LABS: ALT/SGPT 18 U/L (<40); AST/SGOT 23 U/L (<40); Albumin 3.6 gm/dL (3.2-5.2); Albumin/Globulin Ratio 1.3 (1.0-2.3); Alkaline Phosphatase 103 U/L (39-117); Bilirubin,Direct 0.3 mg/dL (<0.3); Bilirubin,Total 1.1 mg/dL (0.1-1.0); Blood Urea Nitrogen 8 mg/dL (6-20); Calcium 11.1 mg/dL (8.6-10.4); Carbon Dioxide 29 mmol/L (22-30); Chloride 97 mmol/L (96-108); Globulin 2.8 gm/dL (2.2-3.7); Glomerular Filtration Rate 97; Glucose 86 mg/dL (70-105); Lactate Dehydrogenase 281 U/L (135-225); Phosphorous 2.5 mg/dL (2.5-4.5); Triglycerides 98 mg/dL (<150); Uric Acid 11.6 mg/dL (2.5-8.0)
[2020-03-20] MEDS: BUDESONIDE 0.5 MG/2 ML AMPUL.NEB NEB SCH ×2 (08:22→20:57)
[2020-03-20 08:31] LABS: Eosinophils % (Manual) 4 % (0-7); Hematocrit 45.3 % (41.0-55.0); Hemoglobin 14.8 g/dL (13.5-16.5); Lymphocytes % 10 % (15-49); Macrocytosis 1+ (None Seen); Mean Cell Volume 101.3 fL (80.0-100.0); Mean Corpuscular HGB Conc 32.7 g/dL (31.0-36.0); Mean Platelet Volume 11.1 fL (7.4-10.4); Monocytes % (Manual) 9 % (1-12); Platelet Count 119 K/mcL (140-440); Platelet Estimate DECREASED (Normal); RBC 4.47 M/mcL (4.50-5.90); RBC Morphology ABNORMAL (Normal); Red Cell Distribution Width 13.2 % (11.5-14.5); Segmented Neutrophils % 77 % (38-78); WBC 7.3 K/mcL (4.5-11.0)
[2020-03-20] MEDS: METOPROLOL SUCCINATE 25 MG TAB.XL.24H PO SCH (09:22)
[2020-03-20] MEDS: NEUTRA PHOS 1 PACKET PO SCH ×2 (09:22→20:25)
[2020-03-20] MEDS: FUROSEMIDE 20 MG/2 ML VIAL IV SCH (09:22)
[2020-03-20] MEDS: NICOTINE 21 MG PATCH TOPICAL SCH (09:22)
[2020-03-20] MEDS: MULTIVIT,THER IRON,CA,FA & MIN 1 TABLET PO SCH (09:22)
[2020-03-20] MEDS: DOCUSATE SODIUM 100 MG CAPSULE PO SCH ×2 (09:23→20:25)
[2020-03-20] MEDS: THIAMINE 100 MG in 0.9 % SODIUM CHLORIDE 50 ML IV SCH (09:24)
[2020-03-20] MEDS: FONDAPARINUX SODIUM 2.5 MG/0.5 ML SYRINGE SQ SCH (09:29)
[2020-03-20] MEDS: HYDROmorphone 0.5 MG/0.5 ML SYRINGE IV PRN ×3 (09:29→23:14)
--- NOTE | 2020-03-20 09:40 | Internal Med Progress Note ---
SUBJECTIVE Subjective Patient information: Note initiated : 03/20/20 at 9:32 am Service Date, if different from initiated Date: [] Patient: Bertrand Curtis a 54 y/o M admitted on 03/17/20 for recheck. Chief Complaint: Mr. Curtis is a 54 year old M with a known history of heavy alcoholism with prior pancreatitis/smoking/COPD, obesity/HTN who presents to the ER with 3 days onset of worsening shortness of breath/upper abdominal pain along with nausea. Patient admits to consuming fifth of alcohol every 2-3 days. Symptoms has progressed over the last 3 days with increasing dyspnea progressing to rest along with worsening abdominal/epigastric pain radiating to back along with associated nausea and loss of appetite. Initial work-up was consistent with blood alcohol level 380. Patient was found to be in A. fib with RVR. Patient was started on diltiazem drip. Chest imaging was consistent with CHF. CT abdomen consistent with simple pancreatitis. However patient shortly thereafter left AMA only to be back within an hour. Hospital service was consulted for admission in light of A. fib RVR/acute pancreatitis. At the time of my evaluation patient is alert but anxious. He was able to answ er most of the questions. He appears anxious and labored. Is currently on 5 L oxygen and demonstrate labored breathing unable to talk in full sentences. Denies any bloody stool/bloody emesis but endorses lightheadedness, dizziness, exertional dyspnea and orthopnea. Also endorses to drinking fifth alcohol this morning. He lives with his son in [place]. He denies recent exposure to Covid or experiencing upper respiratory symptoms. Denies fever, chills, rash or joint pain. 03/18-patient overnight on noninvasive ventilation due to hypercapnic respiratory failure. Rate controlled on diltiazem drip. Currently n.p.o. in light of pancreatitis. Calcium downtrending. White count 6.1, check CRP lipase 03/19-patient off BiPAP trial this morning. On 6 L oxygen. On CIWA protocol with active alcohol withdrawals. Active hallucinations noted. pH 7.3 on 45% FiO2. On Cardizem drip for rate control a flutter. Hypercalcemia worsening at 10.5. Started on pamidronate. Continue crystalloids followed by diuretics. Patient remains critically ill based on [place] 2 score 17, platelet count down to 129 from 2 6. Switched to fondaparinux Start phosphorus replacement, continue bowel rest with clears only for acute pancreatitis. 03/20-pursue abdominal pain. CIWA scores much improved on benzodiazepine sparing protocol. White count downtrending, 4000 cc net negative fluid balance last 24 hours. Improved shortness of breath currently on 4 L oxygen. Off noninvasive ventilation. Phosphorus improved 2.5, persistent elevation calcium at 11.1., Await PTH/PTH RP/vitamin D, nephrology consult if no clear cause identified. If 20%. Start extended-release beta-carol/CHAD inhibitor. Persistent A. fib but now rate controlled. T-max 99. Constitutional Vitals: Vital Signs Temp Pulse Resp BP Pulse Ox 98.1 F 103 H 20 131/94 93 03/20/20 08:01 03/20/20 08:22 03/20/20 08:22 03/20/20 08:01 03/20/20 08:01 Period Temp Pulse Resp BP Sys/Polo Pulse Ox Last 24 Hr 98.1 F-99.0 F 103-125 15-25 107-148/73-119 90-98 Intake and Output 03/19/20 03/20/20 03/20/20 21:59 05:59 13:59 Intake Total 1527 720 Output Total 2701 2051 550 Balance -1174 -1331 -550 Weight 121.644 kg Comfortable Sedated Complains of abdominal discomfort No lymphedema Irregular rhythm on monitor Intake & Output: Intake & Output 03/19/20 03/20/20 03/20/20 21:59 05:59 13:59 Intake Total 1527 720 Output Total 2701 2051 550 Balance -1174 -1331 -550 Weight 121.644 kg Intake: IV 1187 Sodium Chloride 0.9% 1,000 ml @ 1000 100 mls/hr IV .Q10H [facility] Rx#: [id number] Sodium Chloride 0.9% 250 ml @ 187 20 mls/hr IV .[id number] [facility] Rx#: [id number] Oral 340 720 Output: Urine Catheter Amount 1300 Void Amount 1400 2050 550 # of times incontinent of urine 1 1 Other: Urine Appearance Clear Clear Urine Color Bright Yellow Bright Yellow Dark Yellow Urine Odor Normal Normal OBJ DATA Labs CBC & Chem 7: 03/20/20 05:23 03/20/20 05:23 Labs: Abnormal Lab Results 03/20/20 03/20/20 03/19/20 05:23 05:23 05:28 RBC 4.47 L MCV 101.3 H Plt Count 119 L MPV 11.1 H Lymphocytes % 10 L Platelet Estimate Decreased A RBC Morphology Abnormal A Hypochromasia Anisocytosis Macrocytosis 1+ A Uric Acid 11.6 H 11.0 H Calcium 11.1 H 10.5 H Phosphorus 1.7 L Total Bilirubin 1.1 H Direct Bilirubin 0.3 H Lactate Dehydrogenase 281 H 03/19/20 03/18/20 03/18/20 05:28 05:04 05:04 RBC 4.31 L 4.31 L MCV 103.9 H 103.5 H Plt Count 129 L MPV 10.7 H 10.5 H Lymphocytes % Platelet Estimate RBC Morphology Abnormal A Abnormal A Hypochromasia 1+ A Anisocytosis 1+ A Macrocytosis 2+ A 2+ A Uric Acid 12.2 H Calcium Phosphorus Total Bilirubin Direct Bilirubin Lactate Dehydrogenase 230 H Meds: Medications Acetaminophen (Tylenol) 650 mg PO Q4-6HP PRN; Protocol PRN Reason: Per Pain Protocol/Fever > 101 Last Admin: 03/18/20 07:16 Dose: 650 mg Documented by: Albuterol/Ipratropium (Duoneb) 3 ml NEB Q4HP PRN PRN Reason: Shortness Of Breath Last Admin: 03/19/20 19:36 Dose: 3 ml Documented by: Bisacodyl (Dulcolax) 10 mg DC Q2-3DAYS PRN PRN Reason: Constipation Budesonide (Pulmicort) 0.5 mg NEB Q12 [facility] Last Admin: 03/20/20 08:22 Dose: 0.5 mg Documented by: Diltiazem HCl (Cardizem) 30 mg PO Q6 [facility] Last Admin: 03/20/20 05:35 Dose: 30 mg Documented by: Docusate Sodium (Colace) 100 mg PO BID [facility] Last Admin: 03/20/20 09:23 Dose: 100 mg Documented by: Fondaparinux (Arixtra) 2.5 mg SQ DAILY [facility] Last Admin: 03/20/20 09:29 Dose: 2.5 mg Documented by: Furosemide (Lasix) 20 mg IV DAILY [facility] Last Admin: 03/20/20 09:22 Dose: 20 mg Documented by: Gabapentin (Neurontin) 400 mg PO Q8H [facility] Stop: 03/23/20 12:01 Last Admin: 03/20/20 03:41 Dose: 400 mg Documented by: Hydralazine HCl (Apresoline) 10 mg IV Q4-6HP PRN PRN Reason: Hypertension Hydromorphone HCl (Dilaudid) 0.25 mg IV Q2HP PRN; Protocol PRN Reason: Per Pain Protocol Last Admin: 03/20/20 09:29 Dose: 0.25 mg Documented by: Potassium Chloride 40 meq/ (Dextrose) 520 mls @ 130 mls/hr IV UD PRN PRN Reason: K+ = or < 3.5 Acetaminophen (Ofirmev) 650 mg in 65 mls @ 130 mls/hr IV Q6HP PRN; Protocol PRN Reason: Per Pain Protocol/Fever > 101 Magnesium Sulfate (Magnesium Sulfate) 2 gm in 50 mls @ 50 mls/hr IV UD PRN PRN Reason: MG = or < 1.7 Last Infusion: 03/18/20 08:15 Dose: Infused Documented by: Thiamine HCl 100 mg/ Sodium (Chloride) 51 mls @ 50 mls/hr IV DAILY [facility] Stop: 03/20/20 10:02 Last Admin: 03/20/20 09:24 Dose: 50 mls/hr Documented by: Sodium Chloride (Sodium Chloride 0.9%) 250 mls @ 20 mls/hr IV .[id number] [facility] Last Admin: 03/20/20 02:11 Dose: Not Given Documented by: Sodium Chloride (Sodium Chloride 0.9%) 1,000 mls @ 20 mls/hr IV .Q24H [facility] Last Admin: 03/19/20 19:39 Dose: 20 mls/hr Documented by: Diltiazem HCl 125 mg/ Sodium (Chloride) 125 mls @ 5 mls/hr IV Q12HP PRN; Protocol PRN Reason: Tachyarrhythmias Iron Carb/Multivit/[place]/Folic Acid (Multivitamin W/Minerals) 1 tab PO DAILY [facility] Last Admin: 03/20/20 09:22 Dose: 1 tab Documented by: Melatonin (Melatonin 3mg Tablet) 3 mg PO HSP PRN PRN Reason: Insomnia Metoprolol Succinate (Toprol Xl) 25 mg PO DAILY [facility] Last Admin: 03/20/20 09:22 Dose: 25 mg Documented by: Metoprolol Tartrate (Lopressor) 5 mg IV Q5M PRN PRN Reason: Heart Rate > 140 bpm Nicotine (Nicoderm) 21 mg TOPICAL DAILY@1000 [facility] Last Admin: 03/20/20 09:22 Dose: 21 mg Documented by: Ondansetron HCl (Zofran Odt) 4 mg SL Q4-6HP PRN; Protocol PRN Reason: Nausea And Vomiting Last Admin: 03/19/20 19:32 Dose: 4 mg Documented by: Ondansetron HCl (Zofran) 4 mg IV Q4-6HP PRN; Protocol PRN Reason: Nausea And Vomiting Last Admin: 03/18/20 23:03 Dose: 4 mg Documented by: Polyethylene Glycol (Miralax) 17 gm PO DAILYP PRN PRN Reason: Constipation Potassium Chloride (Klor-Con) 40 meq PO DAILYP PRN PRN Reason: K+ < 3.5 Potassium/Phosphorus/Sodium (Neutra Phos) 2 packet PO BID [facility] Last Admin: 03/20/20 09:22 Dose: 2 packet Documented by: Senna/Docusate Sodium (Senna Plus Tablet) 1 tab PO HS [facility] Last Admin: 03/19/20 20:13 Dose: 1 tab Documented by: Sodium Chloride (Saline Flush) 10 ml IV Q8 [facility] Last Admin: 03/20/20 05:46 Dose: 10 ml Documented by: A/P Narrative A/P Narrative: * Alcohol withdrawal with DTs-much improved on benzo sparing protocol on clonidine/gabapentin protocol. * Acute hypoxic hypercapnic respiratory failure-secondary to decompensated heart failure. ABG 7.39/51/79 at 45% FiO2, continue noninvasive mechanical ventilation. Patient remains critically ill * Acute decompensated heart failure with depressed EF 23%. Beta-carol/CHAD inhibitor/diuretics * Hypercalcemia- Calcium 11.5 despite pamidronate/crystalloids followed by diuretics. Check PTH/PTH RP * Alcoholic pancreatitis-continue crystalloid/bowel rest/analgesics * Low phosphorus improved with replacement * Thrombocytopenia down from 200->129-<119. Continue fondaparinux * A. Flutter with RVR-rate controlled on diltiazem drip. Chads score mandates anticoagulation. Also history of prior DVT status post DVT filter placement. * History of COPD continue bronchodilators * History of hypertension -continue beta-carol/CHAD inhibitor * Prophylaxis heparin Plan * Continue ICU care * Hypercalcemia work-up * Serial chest imaging/blood gas * Wean oxygen as tolerated * Start beta-carol/CHAD inhibitor * Continue benzodiazepine sparing protocol on clonidine/gabapentin protocol * Fondaparinux * Phosphorus replacement * Bowel rest/antiemetics/analgesics * Pre-existing medical condition management home meds Patient critically ill. [place] 2 score 18. Critical care time spent in excess of 35 minutes Time Spent With Patient Time: Total time spent is greater than 50% in coordination of care (as documented) at patient's floor/unit and/or counseling patient: QUALITY Stroke Symptom Onset Unknown: No VTE Deep Vein Thrombosis/Pulmonary Embolism Present on Admission: No
[2020-03-20] MEDS ORDERED: SODIUM CHLORIDE NASAL 1 SPRAY BOTTLE NAS PRN (09:56)
[2020-03-20 11:56] LABS: Parathyroid Hormone Intact-SO 166.5 pg/mL (15.0-65.0)
[2020-03-20 12:48] LABS: Vitamin D 25 Hydroxy-SO 20.15 ng/mL (>30.00)
--- NOTE | 2020-03-20 13:16 | Internal Med Progress Note ---
SUBJECTIVE Subjective Patient information: Note initiated : 03/20/20 at 1:05 pm Service Date, if different from initiated Date: [] Patient: Bertrand Curtis a 54 y/o M admitted on 03/17/20 for recheck. Chief Complaint: [] Interval history: Mr. Curtis is a 54 year old M with a known history of heavy alcoholism with prior pancreatitis/smoking/COPD, obesity/HTN who presents to the ER with 3 days onset of worsening shortness of breath/upper abdominal pain a long with nausea. Patient admits to consuming fifth of alcohol every 2-3 days. Symptoms has progressed over the last 3 days with increasing dyspnea progressing to rest along with worsening abdominal/epigastric pain radiating to back along with associated nausea and loss of appetite. Initial work-up was consistent with blood alcohol level 380. Patient was found to be in A. fib with RVR. Patient was started on diltiazem drip. Chest imaging was consistent with CHF. CT abdomen consistent with simple pancreatitis. However patient shortly thereafter left AMA only to be back within an hour. Hospital service was consulted for admission in light of A. fib RVR/acute pancreatitis. At the time of my evaluation patient is alert but anxious. He was able to answer most of the questions. He appears anxious and labored. Is currently on 5 L oxygen and demonstrate labored breathing unable to talk in full sentences. Denies any bloody stool/bloody emesis but endorses lightheadedness, dizziness, exertional dyspnea and orthopnea. Also endorses to drinking fifth alcohol this morning. He lives with his son in [place]. He denies recent exposure to Covid or experiencing upper respiratory symptoms. Denies fever, chills, rash or joint pain. 03/18-patient overnight on noninvasive ventilation due to hypercapnic respiratory failure. Rate controlled on diltiazem drip. Currently n.p.o. in light of pancreatitis. Calcium downtrending. White count 6.1, check CRP lipase 03/19-patient off BiPAP trial this morning. On 6 L oxygen. On CIWA protocol with active alcohol withdrawals. Active hallucinations noted. pH 7.3 on 45% FiO2. On Cardizem drip for rate control a flutter. Hypercalcemia worsening at 10.5. Started on pamidronate. Continue crystalloids followed by diuretics. Patient remains critically ill based on [place] 2 score 17, platelet count down to 129 from 2 6. Switched to fondaparinux Start phosphorus replacement, continue bowel rest with clears only for acute pancreatitis. 03/20-pursue abdominal pain. CIWA scores much improved on benzodiazepine sparing protocol. White count downtrending, 4000 cc net negative fluid balance last 24 hours. Improved shortness of breath currently on 4 L oxygen. Off noninvasive ventilation. Phosphorus improved 2.5, persistent elevation calcium at 11.1., Await PTH/PTH RP/vitamin D, nephrology consult if no clear cause identified. If 20%. Start extended-release beta-carol/CHAD inhibitor. Persistent A. fib but now rate controlled. T-max 99. 03/21 Constitutional Vitals: Vital Signs Temp Pulse Resp BP Pulse Ox 99.3 F H 103 H 21 103/87 95 03/20/20 12:01 03/20/20 08:22 03/20/20 12:01 03/20/20 12:01 03/20/20 12:01 Period Temp Pulse Resp BP Sys/Polo Pulse Ox Last 24 Hr 98.1 F-99.3 F 103-125 15- 103-158/73-112 90-97 Intake and Output 03/19/20 03/20/20 03/20/20 21:59 05:59 13:59 Intake Total 1527 720 600 Output Total 2701 1 850 Balance -1174 -1331 -250 Weight 121.644 kg Intake & Output: Intake & Output 03/19/20 03/20/20 03/20/20 21:59 05:59 13:59 Intake Total 1527 720 600 Output Total 2701 1 850 Balance -1174 -1331 -250 Weight 121.644 kg Intake: IV 1187 Sodium Chloride 0.9% 1,000 ml @ 1000 100 mls/hr IV .Q10H [facility] Rx#: [id number] Sodium Chloride 0.9% 250 ml @ 187 20 mls/hr IV .[id number] [facility] Rx#: [id number] Oral 340 720 600 Output: Urine Catheter Amount 1300 Void Amount 1400 2050 850 # of times incontinent of urine 1 1 Other: Urine Appearance Clear Clear Clear Cloudy Urine Color Bright Yellow Bright Yellow Dark Yellow Urine Odor Normal Normal # Voids 1 Exam: General: Alert, Awake, No acute Distress, obese Eyes/N/T: EOMI, Head/Neck: neck supple, CV: irreg irreg, No murmurs, Pulm: Clear b/l, no wheezing/rhonchi/rales Abd: soft, tender, +BS x4 Ext: no clubbing/cyanosis/edema Neuro: Alert, no focal deficits, moves all extremities, Skin: warm/dry OBJ DATA Labs CBC & Chem 7: 03/20/20 05:23 03/20/20 05:23 Labs: Abnormal Lab Results 03/20/20 03/20/20 03/20/20 10:04 05:23 05:23 RBC 4.47 L MCV 101.3 H Plt Count 119 L MPV 11.1 H Lymphocytes % 10 L Platelet Estimate Decreased A RBC Morphology Abnormal A Hypochromasia Anisocytosis Macrocytosis 1+ A Uric Acid 11.6 H Calcium 11.1 H Phosphorus Total Bilirubin 1.1 H Direct Bilirubin 0.3 H Lactate Dehydrogenase 281 H 25-OH Vitamin D Total 20.15 L PTH Intact 166.5 H 03/19/20 03/19/20 03/18/20 05:28 05:28 05:04 RBC 4.31 L MCV 103.9 H Plt Count 129 L MPV 10.7 H Lymphocytes % Platelet Estimate RBC Morphology Abnormal A Hypochromasia 1+ A Anisocytosis Macrocytosis 2+ A Uric Acid 11.0 H 12.2 H Calcium 10.5 H Phosphorus 1.7 L Total Bilirubin Direct Bilirubin Lactate Dehydrogenase 230 H 25-OH Vitamin D Total PTH Intact 03/18/20 05:04 RBC 4.31 L MCV 103.5 H Plt Count MPV 10.5 H Lymphocytes % Platelet Estimate RBC Morphology Abnormal A Hypochromasia Anisocytosis 1+ A Macrocytosis 2+ A Uric Acid Calcium Phosphorus Total Bilirubin Direct Bilirubin Lactate Dehydrogenase 25-OH Vitamin D Total PTH Intact Meds: Medications Acetaminophen (Tylenol) 650 mg PO Q4-6HP PRN; Protocol PRN Reason: Per Pain Protocol/Fever > 101 Last Admin: 03/18/20 07:16 Dose: 650 mg Documented by: Albuterol/Ipratropium (Duoneb) 3 ml NEB Q4HP PRN PRN Reason: Shortness Of Breath Last Admin: 03/19/20 19:36 Dose: 3 ml Documented by: Bisacodyl (Dulcolax) 10 mg NC Q2-3DAYS PRN PRN Reason: Constipation Budesonide (Pulmicort) 0.5 mg NEB Q12 [facility] Last Admin: 03/20/20 08:22 Dose: 0.5 mg Documented by: Diltiazem HCl (Cardizem) 30 mg PO Q6 [facility] Last Admin: 03/20/20 12:15 Dose: 30 mg Documented by: Docusate Sodium (Colace) 100 mg PO BID [facility] Last Admin: 03/20/20 09:23 Dose: 100 mg Documented by: Fondaparinux (Arixtra) 2.5 mg SQ DAILY [facility] Last Admin: 03/20/20 09:29 Dose: 2.5 mg Documented by: Furosemide (Lasix) 20 mg IV DAILY [facility] Last Admin: 03/20/20 09:22 Dose: 20 mg Documented by: Gabapentin (Neurontin) 400 mg PO Q8H [facility] Stop: 03/23/20 12:01 Last Admin: 03/20/20 12:15 Dose: 400 mg Documented by: Hydralazine HCl (Apresoline) 10 mg IV Q4-6HP PRN PRN Reason: Hypertension Hydromorphone HCl (Dilaudid) 0.25 mg IV Q2HP PRN; Protocol PRN Reason: Per Pain Protocol Last Admin: 03/20/20 09:29 Dose: 0.25 mg Documented by: Potassium Chloride 40 meq/ (Dextrose) 520 mls @ 130 mls/hr IV UD PRN PRN Reason: K+ = or < 3.5 Acetaminophen (Ofirmev) 650 mg in 65 mls @ 130 mls/hr IV Q6HP PRN; Protocol PRN Reason: Per Pain Protocol/Fever > 101 Magnesium Sulfate (Magnesium Sulfate) 2 gm in 50 mls @ 50 mls/hr IV UD PRN PRN Reason: MG = or < 1.7 Last Infusion: 03/18/20 08:15 Dose: Infused Documented by: Sodium Chloride (Sodium Chloride 0.9%) 250 mls @ 20 mls/hr IV .[id number] [facility] Last Admin: 03/20/20 12:10 Dose: Not Given Documented by: Sodium Chloride (Sodium Chloride 0.9%) 1,000 mls @ 20 mls/hr IV .Q24H [facility] Last Admin: 03/19/20 19:39 Dose: 20 mls/hr Documented by: Diltiazem HCl 125 mg/ Sodium (Chloride) 125 mls @ 5 mls/hr IV Q12HP PRN; Pro tocol PRN Reason: Tachyarrhythmias Iron Carb/Multivit/[place]/Folic Acid (Multivitamin W/Minerals) 1 tab PO DAILY [facility] Last Admin: 03/20/20 09:22 Dose: 1 tab Documented by: Melatonin (Melatonin 3mg Tablet) 3 mg PO HSP PRN PRN Reason: Insomnia Metoprolol Succinate (Toprol Xl) 25 mg PO DAILY [facility] Last Admin: 03/20/20 09:22 Dose: 25 mg Documented by: Metoprolol Tartrate (Lopressor) 5 mg IV Q5M PRN PRN Reason: Heart Rate > 140 bpm Nicotine (Nicoderm) 21 mg TOPICAL DAILY@1000 [facility] Last Admin: 03/20/20 09:22 Dose: 21 mg Documented by: Ondansetron HCl (Zofran Odt) 4 mg SL Q4-6HP PRN; Protocol PRN Reason: Nausea And Vomiting Last Admin: 03/19/20 19:32 Dose: 4 mg Documented by: Ondansetron HCl (Zofran) 4 mg IV Q4-6HP PRN; Protocol PRN Reason: Nausea And Vomiting Last Admin: 03/18/20 23:03 Dose: 4 mg Documented by: Polyethylene Glycol (Miralax) 17 gm PO DAILYP PRN PRN Reason: Constipation Potassium Chloride (Klor-Con) 40 meq PO DAILYP PRN PRN Reason: K+ < 3.5 Potassium/Phosphorus/Sodium (Neutra Phos) 2 packet PO BID [facility] Last Admin: 03/20/20 09:22 Dose: 2 packet Documented by: Senna/Docusate Sodium (Senna Plus Tablet) 1 tab PO HS [facility] Last Admin: 03/19/20 20:13 Dose: 1 tab Documented by: Sodium Chloride (Saline Flush) 10 ml IV Q8 [facility] Last Admin: 03/20/20 12:15 Dose: 10 ml Documented by: Sodium Chloride ([place] Nasal) 2 spray WALKER Q4HP PRN PRN Reason: Congestion Last Admin: 03/20/20 11:10 Dose: 2 spray Documented by: A/P Narrative A/P Narrative: A: -Alcohol withdrawal with DTs: -much improved *Acute hypoxic hypercapnic respiratory failure: 2/2 decompensated heart failure -now off bipap *Acute on chronic systolic CHF (EF 23%): *Alcoholic pancreatitis: *Hypercalcemia: likely primary hyperparathyroidism -low phos *Thrombocytopenia: down from 200->129-<119. Continue fondaparinux *Afib/flutter w/RVR (h/o same): Chads score mandates anticoagulation. Also history of prior DVT status post DVT filter placement. *COPD(): *ENOC: *HTN: on norvasc/lisinopril at home Plan: -Serial chest imaging -Wean oxygen as tolerated -Started BB, held norvasc, start ACEI prior to d/c, cont diuretics -discuss anticoagulation -Continue benzodiazepine sparing protocol on clonidine/gabapentin protocol, CIWA/thiamine/folate -Fondaparinux -Bowel rest/antiemetics/analgesics -f/u with endocrinology -maintain Vit D intake 400-800 iu/day; f/u with endocrinology -ppx: fondaparinux Time Spent With Patient Time: Total time spent is greater than 50% in coordination of care (as documented) at patient's floor/unit and/or counseling patient: QUALITY Stroke Symptom Onset Unknown: No VTE Deep Vein Thrombosis/Pulmonary Embolism Present on Admission: No
[2020-03-20] MEDS: FOLIC ACID 1 MG TABLET PO SCH (15:18)
[2020-03-20] MEDS: THIAMINE 100 MG TABLET PO SCH (15:18)
[2020-03-20] MEDS: 0.9 % SODIUM CHLORIDE 1,000 ML IV SCH (19:09)
[2020-03-20] MEDS: SENNOSIDES/DOCUSATE SODIUM 1 TAB TABLET PO SCH (20:25)
[2020-03-21] MEDS: 0.9 % SODIUM CHLORIDE 250 ML IV SCH (00:51)
[2020-03-21] MEDS: ACETAMINOPHEN 325 MG TABLET PO PRN ×3 (01:37→19:13)
[2020-03-21] MEDS: GABAPENTIN 400 MG CAPSULE PO SCH ×3 (03:57→20:48)
[2020-03-21] MEDS: 0.9 % SODIUM CHLORIDE 10 ML SYRINGE IV SCH ×3 (05:15→21:51)
[2020-03-21 06:01] LABS: ALT/SGPT 17 U/L (<40); AST/SGOT 22 U/L (<40); Albumin 3.6 gm/dL (3.2-5.2); Albumin/Globulin Ratio 1.2 (1.0-2.3); Alkaline Phosphatase 100 U/L (39-117); Bilirubin,Direct 0.3 mg/dL (<0.3); Bilirubin,Total 0.9 mg/dL (0.1-1.0); Blood Urea Nitrogen 10 mg/dL (6-20); Calcium 10.6 mg/dL (8.6-10.4); Carbon Dioxide 32 mmol/L (22-30); Chloride 90 mmol/L (96-108); Globulin 2.9 gm/dL (2.2-3.7); Glomerular Filtration Rate 85; Glucose 101 mg/dL (70-105); Lactate Dehydrogenase 219 U/L (135-225); Phosphorous 3.2 mg/dL (2.5-4.5); Triglycerides 94 mg/dL (<150); Uric Acid 11.4 mg/dL (2.5-8.0)
[2020-03-21] MEDS: MAGNESIUM SULFATE 2 GM/50 ML BAG IV PRN (07:51)
[2020-03-21] MEDS ORDERED: METOPROLOL TARTRATE 5 MG/5 ML VIAL IV PRN (08:03)
--- NOTE | 2020-03-21 08:04 | Internal Med Progress Note ---
SUBJECTIVE Subjective Patient information: Note initiated : 03/21/20 at 8:02 am Service Date, if different from initiated Date: [] Patient: Bertrand Curtis a 54 y/o M admitted on 03/17/20 for recheck. Chief Complaint: [] Interval history: Mr. Curtis is a 54 year old M with a known history of heavy alcoholism with prior pancreatitis/smoking/COPD, obesity/HTN who presents to the ER with 3 days onset of worsening shortness of breath/upper abdominal pain a long with nausea. Patient admits to consuming fifth of alcohol every 2-3 days. Symptoms has progressed over the last 3 days with increasing dyspnea progressing to rest along with worsening abdominal/epigastric pain radiating to back along with associated nausea and loss of appetite. Initial work-up was consistent with blood alcohol level 380. Patient was found to be in A. fib with RVR. Patient was started on diltiazem drip. Chest imaging was consistent with CHF. CT abdomen consistent with simple pancreatitis. However patient shortly thereafter left AMA only to be back within an hour. Hospital service was consulted for admission in light of A. fib RVR/acute pancreatitis. At the time of my evaluation patient is alert but anxious. He was able to answer most of the questions. He appears anxious and labored. Is currently on 5 L oxygen and demonstrate labored breathing unable to talk in full sentences. Denies any bloody stool/bloody emesis but endorses lightheadedness, dizziness, exertional dyspnea and orthopnea. Also endorses to drinking fifth alcohol this morning. He lives with his son in [place]. He denies recent exposure to Covid or experiencing upper respiratory symptoms. Denies fever, chills, rash or joint pain. 03/18-patient overnight on noninvasive ventilation due to hypercapnic respiratory failure. Rate controlled on diltiazem drip. Currently n.p.o. in light of pancreatitis. Calcium downtrending. White count 6.1, check CRP lipase 03/19-patient off BiPAP trial this morning. On 6 L oxygen. On CIWA protocol with active alcohol withdrawals. Active hallucinations noted. pH 7.3 on 45% FiO2. On Cardizem drip for rate control a flutter. Hypercalcemia worsening at 10.5. Started on pamidronate. Continue crystalloids followed by diuretics. Patient remains critically ill based on [place] 2 score 17, platelet count down to 129 from 2 6. Switched to fondaparinux Start phosphorus replacement, continue bowel rest with clears only for acute pancreatitis. 03/20-pursue abdominal pain. CIWA scores much improved on benzodiazepine sparing protocol. White count downtrending, 4000 cc net negative fluid balance last 24 hours. Improved shortness of breath currently on 4 L oxygen. Off noninvasive ventilation. Phosphorus improved 2.5, persistent elevation calcium at 11.1., Await PTH/PTH RP/vitamin D, nephrology consult if no clear cause identified. If 20%. Start extended-release beta-carol/CHAD inhibitor. Persistent A. fib but now rate controlled. T-max 99. 03/21 Patient states poor sleep. States is tolerating liquid diet. Oxygen down to 3 L nasal cannula. Did not need BiPAP last night. Follow-up chest x-ray unremarkable. Patient states he supposed to be evaluated for oxygen but needs a sleep study as well before he can get a CPAP machine which is in process of obtaining. Occasional cough. Some shortness of breath but otherwise no new complaints. Review of Systems: denies headache/fever/chills/nausea/vomiting/chest or abdominal pain//diarrhea. Otherwise see above. Constitutional Vitals: Vital Signs Temp Pulse Resp BP Pulse Ox 97.4 F 107 H 21 104/84 91 03/21/20 04:01 03/20/20 21:00 03/21/20 06:01 03/21/20 06:01 03/21/20 06:01 Period Temp Pulse Resp BP Sys/Polo Pulse Ox Last 24 Hr 97.4 F-101.5 F 103-108 13-22 93-158/58-99 90-96 Intake and Output 03/20/20 03/21/20 03/21/20 21:59 05:59 13:59 Intake Total 360 Output Total 776 801 Balance -777 -286 Weight 121.4 kg Intake & Output: Intake & Output 03/20/20 03/21/20 03/21/20 21:59 05:59 13:59 Intake Total 360 Output Total 776 801 Balance -776 -514 Weight 121.4 kg Intake: Oral 360 Output: Void Amount 775 800 # of times incontinent of urine 1 1 Other: Urine Appearance Clear Clear Urine Color Bright Yellow Bright Yellow Urine Odor Normal # Voids 1 Exam: General: Alert, Awake, No acute Distress, obese Eyes/N/T: EOMI, Head/Neck: neck supple, CV: regular with some irregularity, No murmurs, Pulm: Clear b/l, no wheezing/rhonchi/rales Abd: soft, tender, +BS x4 Ext: no clubbing/cyanosis, trace LE edema Neuro: Alert, no focal deficits, moves all extremities, Skin: warm/dry OBJ DATA Labs CBC & Chem 7: 03/20/20 05:23 03/21/20 04:14 Labs: Abnormal Lab Results 03/21/20 03/20/20 03/20/20 04:14 10:04 05:23 RBC MCV Plt Count MPV Lymphocytes % Platelet Estimate RBC Morphology Hypochromasia Anisocytosis Macrocytosis Sodium 132 L Chloride 90 L Carbon Dioxide 32 H Uric Acid 11.4 H 11.6 H Calcium 10.6 H 11.1 H Phosphorus Magnesium 1.4 L Total Bilirubin 1.1 H Direct Bilirubin 0.3 H 0.3 H Lactate Dehydrogenase 281 H 25-OH Vitamin D Total 20.15 L PTH Intact 166.5 H 03/20/20 03/19/20 03/19/20 05:23 05:28 05:28 RBC 4.47 L 4.31 L MCV 101.3 H 103.9 H Plt Count 119 L 129 L MPV 11.1 H 10.7 H Lymphocytes % 10 L Platelet Estimate Decreased A RBC Morphology Abnormal A Abnormal A Hypochromasia 1+ A Anisocytosis Macrocytosis 1+ A 2+ A Sodium Chloride Carbon Dioxide Uric Acid 11.0 H Calcium 10.5 H Phosphorus 1.7 L Magnesium Total Bilirubin Direct Bilirubin Lactate Dehydrogenase 25-OH Vitamin D Total PTH Intact 03/18/20 05:04 RBC 4.31 L MCV 103.5 H Plt Count MPV 10.5 H Lymphocytes % Platelet Estimate RBC Morphology Abnormal A Hypochromasia Anisocytosis 1+ A Macrocytosis 2+ A Sodium Chloride Carbon Dioxide Uric Acid Calcium Phosphorus Magnesium Total Bilirubin Direct Bilirubin Lactate Dehydrogenase 25-OH Vitamin D Total PTH Intact Meds: Medications Acetaminophen (Tylenol) 650 mg PO Q4-6HP PRN; Protocol PRN Reason: Per Pain Protocol/Fever > 101 Last Admin: 03/21/20 01:37 Dose: 650 mg Documented by: Albuterol/Ipratropium (Duoneb) 3 ml NEB Q4HP PRN PRN Reason: Shortness Of Breath Last Admin: 03/19/20 19:36 Dose: 3 ml Documented by: Bisacodyl (Dulcolax) 10 mg DC Q2-3DAYS PRN PRN Reason: Constipation Budesonide (Pulmicort) 0.5 mg NEB Q12 [facility] Last Admin: 03/20/20 20:57 Dose: 0.5 mg Documented by: Docusate Sodium (Colace) 100 mg PO BID [facility] Last Admin: 03/20/20 20:25 Dose: 100 mg Documented by: Folic Acid (Folic Acid) 1 mg PO DAILY [facility] Last Admin: 03/20/20 15:18 Dose: 1 mg Documented by: Fondaparinux (Arixtra) 2.5 mg SQ DAILY [facility] Last Admin: 03/20/20 09:29 Dose: 2.5 mg Documented by: Furosemide (Lasix) 20 mg IV DAILY [facility] Last Admin: 03/20/20 09:22 Dose: 20 mg Documented by: Gabapentin (Neurontin) 400 mg PO Q8H [facility] Stop: 03/23/20 12:01 Last Admin: 03/21/20 03:57 Dose: 400 mg Documented by: Hydralazine HCl (Apresoline) 10 mg IV Q4-6HP PRN PRN Reason: Hypertension Hydromorphone HCl (Dilaudid) 0.25 mg IV Q2HP PRN; Protocol PRN Reason: Per Pain Protocol Last Admin: 03/20/20 23:14 Dose: 0.25 mg Documented by: Potassium Chloride 40 meq/ (Dextrose) 520 mls @ 130 mls/hr IV UD PRN PRN Reason: K+ = or < 3.5 Acetaminophen (Ofirmev) 650 mg in 65 mls @ 130 mls/hr IV Q6HP PRN; Protocol PRN Reason: Per Pain Protocol/Fever > 101 Magnesium Sulfate (Magnesium Sulfate) 2 gm in 50 mls @ 50 mls/hr IV UD PRN PRN Reason: MG = or < 1.7 Last Admin: 03/21/20 07:51 Dose: 50 mls/hr Documented by: Sodium Chloride (Sodium Chloride 0.9%) 250 mls @ 20 mls/hr IV .[id number] [facility] Last Admin: 03/21/20 00:51 Dose: Not Given Documented by: Sodium Chloride (Sodium Chloride 0.9%) 1,000 mls @ 20 mls/hr IV .Q24H [facility] Last Admin: 03/20/20 19:09 Dose: Not Given Documented by: Diltiazem HCl 125 mg/ Sodium (Chloride) 125 mls @ 5 mls/hr IV Q12HP PRN; Protocol PRN Reason: Tachyarrhythmias Iron Carb/Multivit/[place]/Folic Acid (Multivitamin W/Minerals) 1 tab PO DAILY [facility] Last Admin: 03/20/20 09:22 Dose: 1 tab Documented by: Iron Carb/Multivit/[place]/Folic Acid (Multivitamin W/Minerals) 1 tab PO DAILY [facility] Melatonin (Melatonin 3mg Tablet) 3 mg PO HSP PRN PRN Reason: Insomnia Last Admin: 03/20/20 20:25 Dose: 3 mg Documented by: Metoprolol Succinate (Toprol Xl) 25 mg PO DAILY [facility] Last Admin: 03/20/20 09:22 Dose: 25 mg Documented by: Metoprolol Tartrate (Lopressor) 5 mg IV Q5M PRN PRN Reason: Heart Rate > 140 bpm Last Admin: 03/20/20 18:03 Dose: 5 mg Documented by: Nicotine (Nicoderm) 21 mg TOPICAL DAILY@1000 [facility] Last Admin: 03/20/20 09:22 Dose: 21 mg Documented by: Ondansetron HCl (Zofran Odt) 4 mg SL Q4-6HP PRN; Protocol PRN Reason: Nausea And Vomiting Last Admin: 03/19/20 19:32 Dose: 4 mg Documented by: Ondansetron HCl (Zofran) 4 mg IV Q4-6HP PRN; Protocol PRN Reason: Nausea And Vomiting Last Admin: 03/18/20 23:03 Dose: 4 mg Documented by: Polyethylene Glycol (Miralax) 17 gm PO DAILYP PRN PRN Reason: Constipation Potassium Chloride (Klor-Con) 40 meq PO DAILYP PRN PRN Reason: K+ < 3.5 Potassium/Phosphorus/Sodium (Neutra Phos) 2 packet PO BID [facility] Last Admin: 03/20/20 20:25 Dose: 2 packet Documented by: Senna/Docusate Sodium (Senna Plus Tablet) 1 tab PO HS [facility] Last Admin: 03/20/20 20:25 Dose: 1 tab Documented by: Sodium Chloride (Saline Flush) 10 ml IV Q8 [facility] Last Admin: 03/21/20 05:15 Dose: 10 ml Documented by: Sodium Chloride ([place] Nasal) 2 spray [facility]ALKER Q4HP PRN PRN Reason: Congestion Last Admin: 03/20/20 11:10 Dose: 2 spray Documented by: Thiamine HCl (Vitamin B1) 100 mg PO DAILY [facility] Last Admin: 03/20/20 15:18 Dose: 100 mg Documented by: A/P Narrative A/P Narrative: A: -Alcohol withdrawal with DTs: -much improved *Acute hypoxic hypercapnic respiratory failure: 2/2 decompensated heart failure -now off bipap on 3L NC *Acute on chronic diastolic/systolic(25) dilated CHF likely 2/2 etoh: *Alcoholic pancreatitis: -tolerating full liquid diet *Hypercalcemia: 2/2 primary hyperparathyroidism -low phos *Primary hyperparathyroidism: *Thrombocytopenia (likely 2/2 liver dz with acute component): down from 200->129-<119. Continue fondaparinux *Aflutter w/RVR (h/o same): *COPD(not on home O2 but is supposed to be evaluated for home O2): *ENOC: in process of getting cpap *HTN: on norvasc/lisinopril at home *Obese *h/o Hep C: treated Plan: -Wean oxygen as tolerated -Started BB, held norvasc, start ACEI prior to d/c, cont diuretics -anticoagulation started -Continue benzodiazepine sparing protocol on clonidine/gabapentin protocol, CIWA/thiamine/folate -Advance from full liquids to GI soft low-fat -f/u with endocrinology -f/u with cardiology outpt -maintain Vit D intake 400-800 iu/day; f/u with endocrinology -ppx: eliquis Time Spent With Patient Time: Total time spent is greater than 50% in coordination of care (as documented) at patient's floor/unit and/or counseling patient: QUALITY Stroke Symptom Onset Unknown: No VTE Deep Vein Thrombosis/Pulmonary Embolism Present on Admission: No
[2020-03-21] MEDS ORDERED: MAGNESIUM SULFATE 2 GM/50 ML BAG IV ONE (08:06)
--- NOTE | 2020-03-21 08:24 | XRay Report ---
INDICATION: f/u abnormal film TECHNIQUE: AP portable chest x-ray COMPARISON: Previous chest x-rays dated 03/18/2020, 03/17/2020, 03/09/2018 FINDINGS: Lungs:Lungs are negative. No focal pulmonary parenchymal infiltrate or mass Heart, vascular:There is mild cardiomegaly. Pulmonary vascularity is within normal limits. No evidence for congestive heart failure or pulmonary congestion Mediastinum, beverly:No mediastinal widening. No hilar mass Pleura:No pleural fluid. No pleural-based mass or calcification Skeletal:Negative. IMPRESSION: 1. Marked cardiomegaly, unchanged 2. Otherwise negative chest x-ray. Interval improvement since 03/18/2020 Interpreted and Authenticated by: Yovany Izquierdo 03/21/20
[2020-03-21] MEDS: BUDESONIDE 0.5 MG/2 ML AMPUL.NEB NEB SCH ×2 (08:54→20:20)
[2020-03-21] MEDS ORDERED: MULTIVIT,THER IRON,CA,FA & MIN 1 TABLET PO SCH (09:00)
[2020-03-21] MEDS: MULTIVIT,THER IRON,CA,FA & MIN 1 TABLET PO SCH (09:09)
[2020-03-21] MEDS: FONDAPARINUX SODIUM 2.5 MG/0.5 ML SYRINGE SQ SCH (09:09)
[2020-03-21] MEDS: DOCUSATE SODIUM 100 MG CAPSULE PO SCH ×2 (09:09→20:49)
[2020-03-21] MEDS: NICOTINE 21 MG PATCH TOPICAL SCH (09:10)
[2020-03-21] MEDS: VITAMIN D3 400 UNIT TABLET PO SCH (09:10)
[2020-03-21] MEDS: THIAMINE 100 MG TABLET PO SCH (09:10)
[2020-03-21] MEDS: METOPROLOL SUCCINATE 25 MG TAB.XL.24H PO SCH (09:10)
[2020-03-21] MEDS: NEUTRA PHOS 1 PACKET PO SCH ×2 (09:10→20:47)
[2020-03-21] MEDS: FOLIC ACID 1 MG TABLET PO SCH (09:10)
[2020-03-21] MEDS ORDERED: acetaZOLAMIDE SOD 500 MG VIAL IV ONE (10:50)
--- NOTE | 2020-03-21 12:00 | Discharge Summary ---
Discharge Provider Provider Patient information: Note initiated : 03/21/20 at 11:58 am Service Date, if different from initiated Date: [] Patient: Bertrand Curtis 54 y/o M admitted on 03/17/20 for recheck. Chief Complaint: [] Date of admission: 03/17/20 20:59 Discharge date: 03/22/20 Primary care physician: Diann Morrison Consults: 03/17/20 Consult to Physician [CONS] Stat Comment: Consulting Provider: Ricardo Huston Reason For Exam: Physician to Consult Discharge Meds Discharge Medications Home Medications fluticasone propionate 110 mcg/actuation HFA aerosol inhaler 2 puff INHALATION BID 01/06/20 [History Confirmed 03/17/20 Last Taken Unknown] ipratropium 0.5 mg-albuterol 3 mg (2.5 mg base)/3 mL nebulization soln 3 ml INHALATION QID PRN 01/06/20 [History Confirmed 03/17/20 Last Taken Unknown] ipratropium bromide 17 mcg/actuation HFA aerosol inhaler 1 puff INHALATION QID 01/06/20 [History Confirmed 03/17/20 Last Taken Unknown] albuterol sulfate 90 mcg/actuation aerosol inhaler 2 puff INHALATION Q4H PRN #18 g 02/10/20 [Rx Confirmed 03/17/20 Last Taken Unknown] Vitamin D3 400 unit PO DAILY #30 unit 03/21/20 [Rx Last Taken Unknown] apixaban [Eliquis] 5 mg PO BID #60 tab 03/21/20 [Rx Last Taken Unknown] metoprolol succinate 25 mg PO DAILY #30 tab 03/21/20 [Rx Last Taken Unknown] furosemide [Lasix] 10 mg PO QAM #30 tab 03/22/20 [Rx Last Taken Unknown] ipratropium-albuterol 3 ml INHALATION QID PRN #90 ml 03/22/20 [Rx Last Taken Unknown] lisinopril 2.5 mg PO QDAY #30 tab 03/22/20 [Rx Last Taken Unknown] nebulizer accessories #1 each 03/22/20 [Rx Last Taken Unknown] COURSE Hospital Course Hospital course: Interval history: Mr. Curtis is a 54 year old M with a known history of heavy alcoholism with prior pancreatitis/smoking/COPD, obesity/HTN who presents to the ER with 3 days onset of worsening shortness of breath/upper abdominal pain along with nausea. Patient admits to consuming fifth of alcohol every 2-3 days. Symptoms has progressed over the last 3 days with increasing dyspnea progressing to rest along with worsening abdominal/epigastric pain radiating to back along with associated nausea and loss of appetite. Initial work-up was consistent with blood alcohol level 380. Patient was found to be in A. fib with RVR. Patient was started on diltiazem drip. Chest imaging was consistent with CHF. CT abdomen consistent with simple pancreatitis. However patient shortly thereafter left AMA only to be back within an hour. Hospital service was consulted for admission in light of A. fib RVR/acute pancreatitis. At the time of my evaluation patient is alert but anxious. He was able to answer most of the questions. He appears anxious and labored. Is currently on 5 L oxygen and demonstrate labored breathing unable to talk in full sentences. Denies any bloody stool/bloody emesis but endorses lightheadedness, dizziness, exertional dyspnea and orthopnea. Also endorses to drinking fifth alcohol this morning. He lives with his son in [place]. He denies recent exposure to Covid or experiencing upper respiratory symptoms. Denies fever, chills, rash or joint pain. 03/18-patient overnight on noninvasive ventilation due to hypercapnic respiratory failure. Rate controlled on diltiazem drip. Currently n.p.o. in light of pancreatitis. Calcium downtrending. White count 6.1, check CRP lipase 03/19-patient off BiPAP trial this morning. On 6 L oxygen. On CIWA protocol with active alcohol withdrawals. Active hallucinations noted. pH 7.3 on 45% FiO2. On Cardizem drip for rate control a flutter. Hypercalcemia worsening at 10.5. Started on pamidronate. Continue crystalloids followed by diuretics. Patient remains critically ill based on [place] 2 score 17, platelet count down to 129 from 2 6. Switched to fondaparinux Start phosphorus replacement, continue bowel rest with clears only for acute pancreatitis. 03/20-pursue abdominal pain. CIWA scores much improved on benzodiazepine sparing protocol. White count downtrending, 4000 cc net negative fluid balance last 24 hours. Improved shortness of breath currently on 4 L oxygen. Off noninvasive ventilation. Phosphorus improved 2.5, persistent elevation calcium at 11.1., Await PTH/PTH RP/vitamin D, nephrology consult if no clear cause identified. If 20%. Start extended-release beta-carol/CHAD inhibitor. Persistent A. fib but now rate controlled. T-max 99. 03/21 Patient states poor sleep. States is tolerating liquid diet. Oxygen down to 3 L nasal cannula. Did not need BiPAP last night. Follow-up chest x-ray unremarkable. Patient states he supposed to be evaluated for oxygen but needs a sleep study as well before he can get a CPAP machine which is in process of obtaining. Occasional cough. Some shortness of breath but otherwise no new complaints. 03/22 Doing well. On room air and did not qualify for home oxygen. Able for discharge but told me needs close follow-up with accordion tuner and environmental coordinator, as well as his american sign language teacher. Given significant comorbidities and poor personal care with continued alcohol use, patient high risk for readmission and high mortality A/P Narrative: A: *Alcohol withdrawal with DTs: *Acute hypoxic hypercapnic respiratory failure: 2/2 decompensated heart failure *Acute on chronic diastolic/systolic(25) dilated CHF likely 2/2 etoh: *Alcoholic pancreatitis: *Hypercalcemia: 2/2 primary hyperparathyroidism -low phos *Primary hyperparathyroidism: *Thrombocytopenia (likely 2/2 liver dz with acute component): down from 200->129-<119. Continue fondaparinux *Aflutter w/RVR (h/o same): *COPD(not on home O2 but is supposed to be evaluated for home O2): *ENOC: in process of getting cpap *HTN: on norvasc/lisinopril at home *Obese *h/o Hep C: treated Discharge diagnosis: Heart failure hypoxic respiratory failure alcohol with withdrawal pancreati Secondary discharge diagnosis: Alcoholic pancreatitis primary hyperparathyroidism thrombocytopenia flutter COPD obstructive sleep apnea hypertension obesity Time Spent with Patient Time attestation: Total time spent providing and/or coordinating discharge services: Time spent: Greater than 30 minutes EXAM Constitutional Vitals: Temp Pulse Resp BP Pulse Ox 98.0 F 107 H 21 106/78 94 03/21/20 08:04 03/21/20 08:56 03/21/20 10:00 03/21/20 10:00 03/21/20 10:00 Discharge Data Data Completed and Pending Labs on day of discharge: Labs from last hours 03/21/20 03/21/20 03/20/20 08:51 04:14 10:04 Sodium 132 L Potassium 3.6 Chloride 90 L Carbon Dioxide 32 H Anion Gap 10.0 BUN 10 Creatinine 1.0 GFR Calculation 85 Glucose 101 Uric Acid 11.4 H Calcium 10.6 H Phosphorus 3.2 Magnesium 1.4 L Total Bilirubin 0.9 Direct Bilirubin 0.3 H GGT 48 AST 22 ALT 17 Alkaline Phosphatase 100 Lactate Dehydrogenase 219 NT-Pro-B Natriuret Pep 2431.0 H Total Protein 6.5 Albumin 3.6 Globulin 2.9 Albumin/Globulin Ratio 1.2 Triglycerides 94 25-OH Vitamin D Total 20.15 L Discharge Plan Patient/Caregiver Discharge Instructions Activity: increase activity as tolerated Diet: Low Fat Activity Restrictions/Additional Instructions: Referral to see environmental coordinator in 5 to 14 days for primary hyperparathyroidism. Referral to accordion tuner for systolic/diastolic heart heart failure and atrial flutter in 5 to 14 days. f/u with american sign language teacher as scheduled. Prescriptions: New metoprolol succinate 25 mg Tablet Extended Release 24 Hr 25 mg PO DAILY Qty: 30 RF: 0 Eliquis 5 mg Tablet 5 mg PO BID Qty: 60 RF: 0 Vitamin D3 400 unit PO DAILY Qty: 30 RF: 0 lisinopril 2.5 mg tablet 2.5 mg PO QDAY Qty: 30 RF: 0 furosemide [Lasix] 20 mg tablet 10 mg PO QAM Qty: 30 RF: 0 (DME) nebulizer accessories Kit See Rx Instructions .ROUTE .MEDSUPPLY Qty: 1 RF: 0 ipratropium-albuterol 0.5 mg-3 mg(2.5 mg base)/3 mL solution for nebulization 3 ml INHALATION QID PRN (Reason: shortness of breath or wheezing) Qty: 90 RF: 0 Continued Atrovent HFA 17 mcg/actuation HFA aerosol inhaler 1 puff INHALATION QID RF: 0 Flovent HFA 110 mcg/actuation HFA aerosol inhaler 2 puff INHALATION BID RF: 0 ipratropium-albuterol 0.5 mg-3 mg(2.5 mg base)/3 mL solution for nebulization 3 ml INHALATION QID PRN (Reason: Shortness Of Breath) RF: 0 albuterol sulfate 90 mcg/actuation HFA aerosol inhaler 2 puff INHALATION Q4H PRN (Reason: shortness of breath or wheezing) Qty: 18 RF: 0 budesonide-formoterol [Symbicort] 160-4.5 mcg/actuation HFA aerosol inhaler 1 puff inhalation DAILY RF: 0 Discontinued budesonide-formoterol [Symbicort] 160-4.5 mcg/actuation HFA aerosol inhaler 2 puff INHALATION BID Qty: 10.2 RF: 6 amlodipine 5 mg tablet 5 mg PO QDAY RF: 0 ibuprofen [IBU] 800 mg tablet See Rx Instructions PO Q6H PRN (Reason: Pain) RF: 0 lisinopril 40 mg tablet 40 mg PO QDAY RF: 0 Follow Up Plan Follow up with: Diann Morrison ARNP [Primary Care Provider] - Patient Disposition: Home, Self-Care Prognosis: Undetermined Overall status at discharge: patient is progressing back to baseline Discharge Orders: Discharge Order (Routine); Ordered 03/22/20 Ordered By: Armando Casarez [facility] Deep Vein Thrombosis/Pulmonary Embolism Present on Admission: No
[2020-03-21] MEDS: APIXABAN 5 MG TABLET PO SCH (20:48)
[2020-03-21] MEDS: SENNOSIDES/DOCUSATE SODIUM 1 TAB TABLET PO SCH (20:49)
[2020-03-21] MEDS ORDERED: MELATONIN 3 MG TABLET PO SCH (21:00)
[2020-03-21] MEDS ORDERED: ACETAMINOPHEN 500 MG TABLET PO SCH (21:00)
[2020-03-22] MEDS: GABAPENTIN 400 MG CAPSULE PO SCH (04:23)
[2020-03-22] MEDS: 0.9 % SODIUM CHLORIDE 10 ML SYRINGE IV SCH (05:25)
[2020-03-22 07:16] LABS: ALT/SGPT 19 U/L (<40); AST/SGOT 25 U/L (<40); Albumin 3.9 gm/dL (3.2-5.2); Albumin/Globulin Ratio 1.3 (1.0-2.3); Alkaline Phosphatase 104 U/L (39-117); Bilirubin,Direct 0.3 mg/dL (<0.3); Bilirubin,Total 0.7 mg/dL (0.1-1.0); Blood Urea Nitrogen 16 mg/dL (6-20); Calcium 11.2 mg/dL (8.6-10.4); Carbon Dioxide 29 mmol/L (22-30); Chloride 97 mmol/L (96-108); Globulin 3.1 gm/dL (2.2-3.7); Glomerular Filtration Rate 76; Glucose 91 mg/dL (70-105); Lactate Dehydrogenase 197 U/L (135-225); Phosphorous 3.3 mg/dL (2.5-4.5); Triglycerides 110 mg/dL (<150); Uric Acid 11.8 mg/dL (2.5-8.0)
[2020-03-22] MEDS: BUDESONIDE 0.5 MG/2 ML AMPUL.NEB NEB SCH (07:17)
[2020-03-22 07:35] LABS: Basophils # (Auto) 0.04 K/mcL (0.00-0.20); Basophils % (Auto) 0.5 % (0.0-2.0); Eosinophils # (Auto) 0.64 K/mcL (0.00-0.70); Eosinophils % (Auto) 8.5 % (0.0-7.0); Hematocrit 50.7 % (41.0-55.0); Hemoglobin 17.3 g/dL (13.5-16.5); Lymphocytes # (Auto) 0.67 K/mcL (1.50-4.80); Lymphocytes % (Auto) 8.9 % (15.0-49.0); Mean Cell Volume 97.9 fL (80.0-100.0); Mean Corpuscular HGB Conc 34.1 g/dL (31.0-36.0); Mean Platelet Volume 11.5 fL (7.4-10.4); Monocytes # (Auto) 1.12 K/mcL (0.10-0.90); Monocytes % (Auto) 14.9 % (1.0-12.0); Neutrophils % (Auto) 67.2 % (38.0-78.0); Platelet Count 120 K/mcL (140-440); RBC 5.18 M/mcL (4.50-5.90); Red Cell Distribution Width 13.2 % (11.5-14.5); WBC 7.5 K/mcL (4.5-11.0)
[2020-03-22] MEDS: DOCUSATE SODIUM 100 MG CAPSULE PO SCH (08:19)
[2020-03-22] MEDS: NICOTINE 21 MG PATCH TOPICAL SCH (08:19)
[2020-03-22] MEDS: NEUTRA PHOS 1 PACKET PO SCH (08:19)
[2020-03-22] MEDS: FOLIC ACID 1 MG TABLET PO SCH (08:19)
[2020-03-22] MEDS: METOPROLOL SUCCINATE 25 MG TAB.XL.24H PO SCH (08:19)
[2020-03-22] MEDS: APIXABAN 5 MG TABLET PO SCH (08:19)
[2020-03-22] MEDS: MULTIVIT,THER IRON,CA,FA & MIN 1 TABLET PO SCH (08:19)
[2020-03-22] MEDS: VITAMIN D3 400 UNIT TABLET PO SCH (08:19)
[2020-03-22] MEDS: THIAMINE 100 MG TABLET PO SCH (08:19)
[2020-03-22] MEDS ORDERED: FUROSEMIDE 20 MG TABLET PO SCH (09:00)
[2020-03-23 17:20] LABS: Albumin PEP 3.36 gm/dL (3.10-4.70); Alpha-1-Globulins 0.23 gm/dL (0.10-0.50); Alpha-2-Globulins 1.01 gm/dL (0.40-1.20); Beta Globulins 1.08 gm/dL (0.60-1.20); Gamma Globulins 1.12 gm/dL (0.50-1.70); Globulin PEP 3.4 gm/dL (2.4-3.6); Total Protein PEP 6.8 gm/dL (5.9-8.4)
== END 2020-03-22 12:10 | disposition home or self-care (01) | DRG 291 ==
LOC: ED 18:51 → ICU 20:59
PROVIDERS: ADMIT Internal Medicine; ATTEND Internal Medicine